=== PATIENT | male | born 1985 | race Caucasian/White ===

== ENCOUNTER 2018-08-28 17:17 | Emergency (ER) | payer BC ==
[2018-08-28 18:03] VITALS: BP 114/75
[2018-08-28] MEDS ORDERED: Amoxicillin/Clavulanate TAB* 875 MG PO ONE (18:52)
[2018-08-28] MEDS ORDERED: Tetan/Diph/Pertus SYR(Tdap)* 0.5 ML SYR(BOOSTRIX) use SYR IM ONE (18:52)
--- NOTE | 2018-08-28 18:54 | UC ---
Skin Complaint HPI - HPI Summary HPI Summary: Stepped on a nail in left anterior foot yesterday. Today, increased warm, redness, swelling and pain with pain going up the leg. Some sweats this afternoon, no chills/ fevers. - History of Current Complaint Chief Complaint: UCWounds Time Seen by Provider: 08/28/18 18:13 Stated Complaint: LEFT FOOT STEPPED ON NAIL Hx Obtained From: Patient Onset/Duration: Sudden Onset, Lasting Days - 2, Worse Since - today Skin Exposure Onset/Duration: Days Ago - 2 Timing: Constant Onset Severity: Mild Current Severity: Severe Pain Intensity: 8 Location: Foot (Left) - puncture wound Character: Swelling, Pain, Redness Aggravating Factor(s): Other - walking Alleviating Factor(s): Nothing Associated Signs & Symptoms: Positive: Diaphoresis, Tenderness. Negative: Fever , Chills, Red Streaks Related History: Trauma - nail puncture wound. - Allergy/Home Medications Allergies/Adverse Reactions: Allergies Allergy/AdvReac Type Severity Reaction Status Date / Time azathioprine [From Imuran] Allergy Vomiting Verified 08/28/18 18:04 erythromycin base Allergy Hives Verified 08/28/18 18:04 infliximab [From Remicade] Allergy Difficulty Verified 08/28/18 18:04 Breathing Home Medications: Home Medications Budesonide [Entocort EC] 9 mg PO DAILY 08/28/18 [History Confirmed 08/28/18] Ciprofloxacin TAB* [Cipro 250 MG Tab*] 250 mg PO BID 08/28/18 [History Confirmed 08/28/18] Dicyclomine CAP* [Bentyl CAP*] 10 mg PO TID PRN 08/28/18 [History Confirmed 08/11] Escitalopram * [Lexapro *] 20 mg PO DAILY 08/28/18 [History Confirmed 08/28/18] metroNIDAZOLE [Flagyl 500 MG TAB] 500 mg PO BID 08/28/18 [History Confirmed 08/11] PMH/Surg Hx/FS Hx/Imm Hx Other GI/ History: Colitis - Surgical History Surgical History: Yes Surgery Procedure, Year, and Place: APPENDECTOMY. J pouch. rectal tumor- non- cancerous. ileostomy and reversal - Family History Known Family History: Negative: Diabetes - Social History Occupation: Employed Full-time Lives: With Family Alcohol Use: None Substance Use Type: None Smoking Status (MU): Never Smoked Tobacco - Immunization History Most Recent Tetanus Shot: not sure, think 2014 Review of Systems All Other Systems Reviewed And Are Negative: Yes Musculoskeletal: Positive: Arthralgia - left foot with swelling, warmth Physical Exam Triage Information Reviewed: Yes Appearance: Well-Nourished, Ill-Appearing, Pain Distress Vital Signs: Initial Vital Signs Temp 97.8 F 08/28/18 17:59 Pulse 71 08/28/18 17:59 Resp 16 08/28/18 17:59 BP 114/75 08/28/18 17:59 Pulse Ox 99 08/28/18 17:59 Vital Signs Reviewed: Yes Eyes: Positive: Conjunctiva Clear Neck exam: Normal Respiratory Exam: Normal Cardiovascular Exam: Normal Musculoskeletal: Positive: ROM Limited @ - left foot, Other: - left foot with puncture wound plantar distal foot. Swelling and erythema dorsal foot over the puncture wound. Neurological Exam: Normal Psychological Exam: Normal Skin: Positive: Other - redness over the left foot Course/Dx - Course Course Of Treatment: On cipro and flagyl for bowel disease. - Differential Diagnoses - Skin Complaint Differential Diagnoses: Abscess, Cellulitis, Lymphangitis - Diagnoses Provider Diagnosis: Puncture wound of left foot excluding toes with infection Discharge - Sign-Out/Discharge Documenting (check all that apply): Patient Departure All imaging exams completed and their final reports reviewed: No Studies - Discharge Plan Condition: Stable Disposition: HOME Prescriptions: Amoxicillin/Clavulanate TAB* [Augmentin TAB 875*] 875 mg PO BID #20 tab Patient Education Materials: Puncture Wound (ED), Cellulitis (ED), Amoxicillin/ Clavulanate Potassium (By mouth) Referrals: Wayne Jay MD [Primary Care Provider] - Additional Instructions: IF THE PAIN IS GETTING WORSE, OR IF YOU HAVE FEVERS/ SHAKING CHILLS GO TO THE ER. - Billing Disposition and Condition Condition: STABLE Disposition: Home
== END 2018-08-28 19:05 | disposition home or self-care (01) ==
LOC: UCCORT 17:17
DX: S91.332A Puncture wound without foreign body, left foot, initial encounter (principal); L08.9 Local infection of the skin and subcutaneous tissue, unspecified; W22.8XXA Striking against or struck by other objects, initial encounter; Y92.9 Unspecified place or not applicable; Z88.1 Allergy status to other antibiotic agents
CPT/HCPCS: 90471; 90715; 99212; A9270-GY; G0463

== ENCOUNTER 2019-05-02 12:57 | Emergency (ER) | payer BC, MEDICAID ==
--- OUTSIDE RECORDS SUMMARY | 2019-05-02 13:08 | XMS REPORT | Summary of Care ---
:1985 Author Organization [facility] Address [address] [place] [address] Care Team Providers Name Role Phone Wayne Jay Primary Care Provider Reason for Visit (Routine) Status Reason Specialty Diagnoses / Procedures Referred By Referred To Contact Contact Closed Infusion Therapy Diagnoses Crohn's disease of both small and large intestine with complications Jeana Chavira MD [facility] Infusion Procedures MD IV INFUSION THERAPY/PROPHYLAXIS /DX 1ST TO 1 HR MD IV INFUSION THERAPY PROPHYLAXIS/DX EA HOUR MD DRUGS UNCLASSIFIED INJECTION [address] [place] [address] [address] Phone: [place] [phone] [id number] Encounter Details Date Type Department Care Team Description 04/21/2019 Hospital Encounter [facility] Infusion Center Outpatient [address] [facility] [place] [id number] Allergies Active Allergy Reactions Severity Noted Date Comments Erythromycin Other 01/08/2009 Azathioprine Sodium GI Reaction High 08/29/2014 Diarrhea,vomiting,shakes Infliximab Swelling 07/13/2014 Developed antibodies against documented as of this encounter (statuses as of 04/23/2019) Medications Medication Sig Dispensed Refills Start Date End Date Status B-12, Methylcobalamin, Place 1,000 mcg 0 Active 1000 MCG Sublingual SL under tongue EVERY Tab OTHER DAY. Probiotic Product Take 1 Cap by 0 Active (PROBIOTIC DAILY PO) mouth DAILY. budesonide (ENTOCORT Take 9 mg by mouth 0 Active EC) 3 MG Oral CAPSULE DAILY. ENTERIC COATED PARTICLESIndications: Ileal pouchitis (HCC) dicyclomine (BENTYL) Take 20 mg by 0 Active 20 MG Oral mouth THREE TIMES TabIndications: Ileal DAILY. pouchitis (HCC) pantoprazole TAKE ONE TABLET BY 30 Tab 6 05/21/2016 Active (PROTONIX) 40 MG Oral MOUTH EVERY DAY Tab EC acetaminophen Take 500 mg by 0 Active (TYLENOL) 500 MG Oral mouth EVERY SIX Tab HOURS NEEDED for Pain. escitalopram (LEXAPRO) TAKE TWO TABLETS 60 Tab 5 02/24/2019 Active 10 MG Oral Tab BY MOUTH EVERY DAY predniSONE (DELTASONE) Take 2 Tabs by 30 Tab 0 03/16/2019 Active 20 MG Oral Tab mouth EVERY TWENTY-FOUR HOURS. rifaximin (XIFAXAN) Take 1 Tab by 60 Tab 0 03/23/2019 Active 550 MG Oral Tab mouth TWICE DAILY. Budesonide (UCERIS) 2 Place 1 Applicator 1 Can 1 03/23/2019 Active MG/ACT Rectal Foam per rectum DAILY. predniSONE (DELTASONE) Take 6 Tabs by 100 Tab 0 04/18/2019 Active 5 MG Oral Tab mouth DAILY. documented as of this encounter (statuses as of 04/23/2019) Active Problems Problem Noted Date Lower GI bleed 03/15/2019 Thrombocytosis 07/29/2017 Ileal pouchitis 01/08/2016 Rectal or anal pain 06/20/2015 Ulcerative colitis, chronic 10/12/2014 Mood disorder documented as of this encounter (statuses as of 04/23/2019) Resolved Problems Problem Noted Date Resolved Date Diarrhea following gastrointestinal surgery 07/09/2015 03/27/2018 Ileostomy status 06/13/2015 08/13/2015 History of ulcerative colitis 06/13/2015 03/27/2018 DVT of upper extremity (deep vein thrombosis), right 02/09/2015 08/13/2015 Abdominal fluid collection 02/08/2015 08/13/2015 DVT of upper extremity (deep vein thrombosis) 01/30/2015 08/13/2015 [facility] (current) use of anticoagulants 01/29/2015 06/28/2015 Overview: 06/28/15 Warfarin d/c'd by [facility] Managed by [facility], referred by Dr Ry La, Dx RUE DVT, target INR range 2.0-3.0, therapy initiated on 01/25/15, duration of therapy 6 months Anticoagulant Warfarin Dehydration 01/08/2015 07/14/2015 Rectal mass 01/08/2015 07/14/2015 Ulcerative colitis, acute, other complication 08/14/2014 08/13/2015 Pancolitis 08/14/2014 08/13/2015 Bloody diarrhea 08/14/2014 10/12/2014 Leukocytosis 08/14/2014 10/12/2014 Other ulcerative colitis 05/24/2014 12/29/2014 documented as of this encounter (statuses as of 04/23/2019) Immunizations Name Administration Dates Next Due Influenza (IM) Preservative Free 03/23/2019, 11/09/2014, 02/27/2012 MMR VACCINE 06/14/2014 documented as of this encounter Social History Tobacco Use Types Packs/Day Years Used Date Never Smoker Smokeless Tobacco: Never Used Alcohol Use Drinks/Week oz/Week Comments Yes OCCASIONALLY Sex Assigned at Date Recorded Not on file documented as of this encounter Last Filed Vital Signs Vital Sign Reading Time Taken Comments Blood Pressure 136/84 04/21/2019 2:43 PM EST Pulse - - Temperature 36.6 04/21/2019 2:43 PM EST C (97.9 F) Respiratory Rate 16 04/21/2019 2:43 PM EST Oxygen Saturation - - Inhaled Oxygen Concentration - - Weight - - Height - - Body Mass Index - - documented in this encounter Plan of Treatment Date Type Specialty Care Team Description 04/26/2019 GI Procedure Gastroenterology Jeana Chavira MD [address] [place] [address] [phone] 05/20/2019 Office Visit Family Practice Wayne Jay MD [address] [place] [address] [phone] Health Maintenance Due Date Last Done Comments DTaP/Tdap/Td Vaccines ( - 02/13/1996 Tdap) DEPRESSION SCREENING 03/03/2020 03/03/2019, 03/03/2019 INFLUENZA VACCINE Completed 03/23/2019, 11/09/2014, 02/27/2012 HEPATITIS A IMMUNIZATION Aged Out No longer eligible based SERIES on patient's age to complete this topic HPV IMMUNIZATION SERIES Aged Out No longer eligible based on patient's age to complete this topic MENINGOCOCCAL VACCINE IMM Aged Out No longer eligible based on patient's age to complete this topic PNEUMOCOCCAL 0-64 YRS Aged Out No longer eligible based on patient's age to complete this topic documented as of this encounter Goals Goal Patient Goal Associated Recent Patient-Stated? Author Type Problems Progress Depression Depression 18 No sabino Jay (PHQ-9) (03/03/2019 MD Wayne total score < 5 9:08 AM EST) Note: This is an individualized treatment (depression) goal for Carlos Arroa: Displayed above is your goal for a depression screening (PHQ-9) score that would indicate good control of your depression. Keep a regular sleep schedule Lifestyle No Wayne Jay MD Note: This is an individualized lifestyle goal for Carlos Arora: Please maintain a regular sleep schedule. This may help with some symptoms of depression. Take all prescribed medications as directed Self-management No Wayne Jay MD Note: This is an individualized self-management goal for Carlos Arora: Please take all prescribed medications as directed. 1. Do not skip doses. If you cannot afford your medications, talk with your doctor. 2. Use a pill reminder system such as a pill box if needed. Your pharmacist can help you with this. 3. Contact your Pharmacy 5 days before your medication runs out. If you cannot take your medications for any reasons, talk with your doctor. 4. Please bring all of your medication bottles and inhalers (or a list of all your medications/inhalers) with you to every visit. Potential barriers to meeting all of your care plan goals will continue to be addressed on an ongoing basis. documented as of this encounter Results Not on filedocumented in this encounter Administered Medications Medication Order MAR Action Action Date Dose Rate Site ustekinumab (STELARA) IV mixture New Bag 04/21/2019 3:34 PM EST 520 mg 520 mg 520 mg, Intravenous, X1, 1 dose, First dose on Hattie 04/21/19 at 1600, Infuse over at least 1 hour using an IV set with an in-line, low-protein binding filter (0.2 micron). Patient supplied medication by specialty, documented in this encounter Insurance Payer Benefit Plan / Subscriber ID Effective Dates Phone Address Type Group [employer] ACCESS [id number] 2018-Present [facility] CARE PPO [place]ICAID [place] [id number] 2019-Present Medicaid [place] MED[place]ID Guarantor Name Account Type Relation to Date of Phone Billing Patient Address Carlos Arora Personal/Family 1985 [address] [phone] [place], [place] ([place]) [id number] documented as of this encounter Advance Directives Code Status Date Activated Date Inactivated Comments Full Code 03/14/2019 10:05 AM Does the patient have decision making capacity? Yes Order was discussed with: Patient I discussed all options and patient/surrogate requested and agreed to: Full Code Full Code 05/24/2014 1:12 PM 05/26/2014 3:24 PM Does patient have decision making capacity? yes Order discussed with: Patient I discussed all options and patient/surrogate requested and agreed to: Other (Full code)
--- OUTSIDE RECORDS SUMMARY | 2019-05-02 13:08 | XMS REPORT | Summary of Care ---
:1985 Author Organization [facility] Address [address] [place] [address] Care Team Providers Name Role Phone Wayne Jay Primary Care Provider Reason for Visit Reason Comments Surgery Consult Ulcerative colitis, anal intraephithelial neoplasia Encounter Details Date Type Department Care Team Description 03/29/2019 Office Visit [facility] Alexandru Perez MD Ileal pouchitis (HCC) [address] (Primary Dx) [place] [phone] [place] [address] Allergies Active Allergy Reactions Severity Noted Date Comments Erythromycin Other 01/08/2009 Azathioprine Sodium GI Reaction High 08/29/2014 Diarrhea,vomiting,shakes Infliximab Swelling 07/13/2014 Developed antibodies against documented as of this encounter (statuses as of 03/29/2019) Medications Medication Sig Dispensed Refills Start Date End Date Status B-12, Place 1,000 mcg 0 Active Methylcobalamin, under tongue 1000 MCG EVERY OTHER Sublingual SL Tab DAY. Probiotic Product Take 1 Cap by 0 Active (PROBIOTIC DAILY mouth DAILY. PO) budesonide Take 9 mg by 0 Active (ENTOCORT EC) 3 MG mouth DAILY. Oral CAPSULE ENTERIC COATED PARTICLESIndicatio ns: Ileal pouchitis (HCC) dicyclomine Take 20 mg by 0 Active (BENTYL) 20 MG mouth THREE Oral TIMES DAILY. TabIndications: Ileal pouchitis (HCC) pantoprazole TAKE ONE TABLET 30 Tab 6 05/21/2016 Active (PROTONIX) 40 MG BY MOUTH EVERY Oral Tab EC DAY acetaminophen Take 500 mg by 0 Active (TYLENOL) 500 MG mouth EVERY SIX Oral Tab HOURS NEEDED for Pain. escitalopram TAKE TWO 60 Tab 5 02/24/2019 Active (LEXAPRO) 10 MG TABLETS BY Oral Tab MOUTH EVERY DAY predniSONE Take 2 Tabs by 30 Tab 0 03/16/2019 Active (DELTASONE) 20 MG mouth EVERY Oral Tab TWENTY-FOUR HOURS. rifaximin Take 1 Tab by 60 Tab 0 03/23/2019 Active (XIFAXAN) 550 MG mouth TWICE Oral Tab DAILY. predniSONE Take 6 Tabs by 100 Tab 0 03/23/2019 Active (DELTASONE) 5 MG mouth DAILY. Oral Tab Budesonide Place 1 1 Can 1 03/23/2019 Active (UCERIS) 2 MG/ACT Applicator per Rectal Foam rectum DAILY. NITROGLYCERIN RE Place 0.125 % 0 03/29/19 Discontinued per rectum 20 (Error) THREE TIMES DAILY. Apply a pea sized amt 3-4 times daily inside rectum using finger cot documented as of this encounter (statuses as of 03/29/2019) Active Problems Problem Noted Date Lower GI bleed 03/15/2019 Thrombocytosis 07/29/2017 Ileal pouchitis 01/08/2016 Rectal or anal pain 06/20/2015 Ulcerative colitis, chronic 10/12/2014 Mood disorder documented as of this encounter (statuses as of 03/29/2019) Resolved Problems Problem Noted Date Resolved Date Diarrhea following gastrointestinal surgery 07/09/2015 03/27/2018 Ileostomy status 06/13/2015 08/13/2015 History of ulcerative colitis 06/13/2015 03/27/2018 DVT of upper extremity (deep vein thrombosis), right 02/09/2015 08/13/2015 Abdominal fluid collection 02/08/2015 08/13/2015 DVT of upper extremity (deep vein thrombosis) 01/30/2015 08/13/2015 halfway (current) use of anticoagulants 01/29/2015 06/28/2015 Overview: 06/28/15 Warfarin d/c'd by [facility] Managed by [facility], referred by Dr Ry La, Dx RUE DVT, target INR range 2.0-3.0, therapy initiated on 01/25/15, duration of therapy 6 months Anticoagulant Warfarin Dehydration 01/08/2015 07/14/2015 Rectal mass 01/08/2015 07/14/2015 Ulcerative colitis, acute, other complication 08/14/2014 08/13/2015 Pancolitis 08/14/2014 08/13/2015 Bloody diarrhea 08/14/2014 10/12/2014 Leukocytosis 08/14/2014 10/12/2014 Other ulcerative colitis 05/24/2014 12/29/2014 documented as of this encounter (statuses as of 03/29/2019) Immunizations Name Administration Dates Next Due Influenza (IM) Preservative Free 03/23/2019, 11/09/2014, 02/27/2012 MMR VACCINE 06/14/2014 documented as of this encounter Social History Tobacco Use Types Packs/Day Years Used Date Never Smoker Smokeless Tobacco: Never Used Alcohol Use Drinks/Week oz/Week Comments Yes OCCASIONALLY Sex Assigned at Date Recorded Not on file Job Start Date Occupation Industry Not on file Not on file Not on file Travel History Travel Start Travel End No recent travel history available. documented as of this encounter Last Filed Vital Signs Vital Sign Reading Time Taken Comments Blood Pressure - - Pulse - - Temperature - - Respiratory Rate - - Oxygen Saturation - - Inhaled Oxygen Concentration - - Weight 113.4 kg (250 lb) 03/29/2019 3:10 PM EST Height 190.5 cm (6' 3") 03/29/2019 3:10 PM EST Body Mass Index 31.25 03/29/2019 3:10 PM EST documented in this encounter Progress Notes Alexandru Perez MD - 03/29/2019 3:10 PM EST PATIENT: Carlos Arora : 1985 DATE OF SERVICE: 03/29/2019 CHIEF COMPLAINT: Chief Complaint Patient presents with Surgery Consult Ulcerative colitis, anal intraephithelial neoplasia Subjective HISTORY OF PRESENT ILLNESS: Carlos Arroa is a 34-y.o. male. HPI Patient is a 34-year-old gentleman with prior diagnosis of ulcerative colitis status post total abdominal colectomy, proctectomy with ileal pouch anal anastomosis. This patient recently developed significant anal bleeding/ hematochezia requiring blood transfusion. Patient had been frequently suffering from awful pouchitis although he has been out of his pouch surgery for 5 years. Patient's pouch endoscopy revealed significant ulcerations and bleeding. 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 B-12, Methylcobalamin, 1000 MCG Sublingual SL Tab Place 1,000 mcg under tongue EVERY OTHER DAY. budesonide (ENTOCORT EC) 3 MG Oral CAPSULE ENTERIC COATED PARTICLES Take 9 mg by mouth DAILY. Budesonide (UCERIS) 2 MG/ACT Rectal Foam Place 1 Applicator per rectum DAILY. dicyclomine (BENTYL) 20 MG Oral Tab Take 20 mg by mouth THREE TIMES DAILY. escitalopram (LEXAPRO) 10 MG Oral Tab TAKE TWO TABLETS BY MOUTH EVERY DAY pantoprazole (PROTONIX) 40 MG Oral Tab EC TAKE ONE TABLET BY MOUTH EVERY DAY predniSONE (DELTASONE) 20 MG Oral Tab Take 2 Tabs by mouth EVERY TWENTY- FOUR HOURS. predniSONE (DELTASONE) 5 MG Oral Tab Take 6 Tabs by mouth DAILY. Probiotic Product (PROBIOTIC DAILY PO) Take 1 Cap by mouth DAILY. rifaximin (XIFAXAN) 550 MG Oral Tab Take 1 Tab by mouth TWICE DAILY. No current facility-administered medications for this visit. Allergies Allergen Reactions Imuran [Azathioprine Sodium] GI Reaction Diarrhea,vomiting,shakes Erythromycin Other Remicade [Infliximab] Swelling Developed antibodies against Social History Socioeconomic History Marital status: Spouse name: Not on file Number of children: Not on file Years of education: Not on file Highest education level: Not on file Occupational History Not on file Social Needs Financial resource strain: Not on file Food insecurity Worry: Not on file Inability: Not on file Transportation needs Medical: Not on file Non-medical: Not on file Tobacco Use Smoking status: Never Smoker Smokeless tobacco: Never Used Substance and Sexual Activity Alcohol use: Yes Comment: OCCASIONALLY Drug use: No Sexual activity: Yes Partners: Female Lifestyle Physical activity Days per week: Not on file Minutes per session: Not on file Stress: Not on file Relationships Social connections Talks on phone: Not on file Gets together: Not on file Attends taoism service: Not on file Active member of club or organization: Not on file Attends meetings of clubs or organizations: Not on file Relationship status: Not on file Intimate partner violence Fear of current or ex partner: Not on file Emotionally abused: Not on file Physically abused: Not on file Forced sexual activity: Not on file Other Topics Concern Back Care Not Asked Bike Helmet Not Asked Blood Transfusions Not Asked Caffeine Concern Not Asked Exercise Not Asked Hobby Hazards Not Asked International Travel Not Asked Service Not Asked Occupational Exposure Not Asked Seat Belt Not Asked Self-Exams Not Asked Sleep Concern Not Asked Special Diet Not Asked Stress Concern Not Asked Weight Concern Not Asked Social History Narrative Not on file REVIEW OF SYSTEMS: Review of Systems Constitutional: Negative. Gastrointestinal: Positive for blood in stool. Objective PHYSICAL EXAM: VITALS: Ht 6' 3" (1.905 m) | Wt 250 lb (113.4 kg) | BMI 31.25 kg/m Body mass index is 31.25 kg/m. Physical Exam Vitals signs and nursing note reviewed. Constitutional: Appearance: Normal appearance. Comments: The rest of the examination was not performed Neurological: Mental Status: He is alert. ASSESSMENT / IMPRESSION: ICD-9-CM ICD-10-CM 1. Ileal pouchitis (HCC) 569.71 K91.850 Plan I agree with maintenance medication for presumed Crohn's disease and slow progressive failure of thepouch. Patient is feeling good because of the prednisone he is on. I will biopsy or remove AIN 1 in the next several months after his disease is under control better. Patient understands that. Patient' s mother was present at the time of this office visit. Author: Alexandru Perez MD 03/29/2019 16:57 ENCaAlexandru clark MD - 03/29/2019 3:10 PM EST PATIENT: Carlos Arora : 1985 DATE OF SERVICE: 03/29/2019 CHIEF COMPLAINT: Chief Complaint Patient presents with Surgery Consult Ulcerative colitis, anal intraephithelial neoplasia Subjective HISTORY OF PRESENT ILLNESS: Carlos Arora is a 34-y.o. male. HPI Patient is a 34-year-old gentleman with prior diagnosis of ulcerative colitis status post total abdominal colectomy, proctectomy with ileal pouch anal anastomosis. This patient recently developed significant anal bleeding/ hematochezia requiring blood transfusion. Patient had been frequently suffering from awful pouchitis although he has been out of his pouch surgery for 5 years. Patient's pouch endoscopy revealed significant ulcerations and bleeding. 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 B-12, Methylcobalamin, 1000 MCG Sublingual SL Tab Place 1,000 mcg under tongue EVERY OTHER DAY. budesonide (ENTOCORT EC) 3 MG Oral CAPSULE ENTERIC COATED PARTICLES Take 9 mg by mouth DAILY. Budesonide (UCERIS) 2 MG/ACT Rectal Foam Place 1 Applicator per rectum DAILY. dicyclomine (BENTYL) 20 MG Oral Tab Take 20 mg by mouth THREE TIMES DAILY. escitalopram (LEXAPRO) 10 MG Oral Tab TAKE TWO TABLETS BY MOUTH EVERY DAY pantoprazole (PROTONIX) 40 MG Oral Tab EC TAKE ONE TABLET BY MOUTH EVERY DAY predniSONE (DELTASONE) 20 MG Oral Tab Take 2 Tabs by mouth EVERY TWENTY- FOUR HOURS. predniSONE (DELTASONE) 5 MG Oral Tab Take 6 Tabs by mouth DAILY. Probiotic Product (PROBIOTIC DAILY PO) Take 1 Cap by mouth DAILY. rifaximin (XIFAXAN) 550 MG Oral Tab Take 1 Tab by mouth TWICE DAILY. No current facility-administered medications for this visit. Allergies Allergen Reactions Imuran [Azathioprine Sodium] GI Reaction Diarrhea,vomiting,shakes Erythromycin Other Remicade [Infliximab] Swelling Developed antibodies against Social History Socioeconomic History Marital status: Spouse name: Not on file Number of children: Not on file Years of education: Not on file Highest education level: Not on file Occupational History Not on file Social Needs Financial resource strain: Not on file Food insecurity Worry: Not on file Inability: Not on file Transportation needs Medical: Not on file Non-medical: Not on file Tobacco Use Smoking status: Never Smoker Smokeless tobacco: Never Used Substance and Sexual Activity Alcohol use: Yes Comment: OCCASIONALLY Drug use: No Sexual activity: Yes Partners: Female Lifestyle Physical activity Days per week: Not on file Minutes per session: Not on file Stress: Not on file Relationships Social connections Talks on phone: Not on file Gets together: Not on file Attends taoism service: Not on file Active member of club or organization: Not on file Attends meetings of clubs or organizations: Not on file Relationship status: Not on file Intimate partner violence Fear of current or ex partner: Not on file Emotionally abused: Not on file Physically abused: Not on file Forced sexual activity: Not on file Other Topics Concern Back Care Not Asked Bike Helmet Not Asked Blood Transfusions Not Asked Caffeine Concern Not Asked Exercise Not Asked Hobby Hazards Not Asked International Travel Not Asked Service Not Asked Occupational Exposure Not Asked Seat Belt Not Asked Self-Exams Not Asked Sleep Concern Not Asked Special Diet Not Asked Stress Concern Not Asked Weight Concern Not Asked Social History Narrative Not on file REVIEW OF SYSTEMS: Review of Systems Constitutional: Negative. Gastrointestinal: Positive for blood in stool. Objective PHYSICAL EXAM: VITALS: Ht 6' 3" (1.905 m) | Wt 250 lb (113.4 kg) | BMI 31.25 kg/m Body mass index is 31.25 kg/m. Physical Exam Vitals signs and nursing note reviewed. Constitutional: Appearance: Normal appearance. Comments: The rest of the examination is not performed Neurological: Mental Status: He is alert. Psychiatric: Mood and Affect: Mood normal. Behavior: Behavior normal. Thought Content: Thought content normal. Judgment: Judgment normal. ASSESSMENT / IMPRESSION: ICD-9-CM ICD-10-CM 1. Ileal pouchitis (HCC) 569.71 K91.850 Plan I agree with maintenance medication for presumed Crohn's disease and slow progressive failure of ileal pouch anal anastomosis. Patient is currently feeling good due to his prednisone taper. I will remove his AIN1 several months after his disease is under control. Patient understands that. Patient' s mother was present at the time of this office visit. Author: Alexandru Perez MD 03/29/2019 17:06 documented in this encounter Plan of Treatment Date Type Specialty Care Team Description 03/31/2019 Office Visit Gastroenterology Jeana Chavira MD [address] [place] [address] [phone] 04/07/2019 Office Visit Family Practice Wayne Jay MD [address] [place] [address] [phone] 04/26/2019 GI Procedure Gastroenterology Jeana Chavira MD [address] [place], [place] [id number] Health Maintenance Due Date Last Done Comments [...] an individualized treatment (depression) goal for Carlos Arora: Displayed above is your goal for a [...] Results Not on filedocumented in this encounter Visit Diagnoses Diagnosis Ileal pouchitis (HCC) Pouchitis documented in this encounter Insurance Payer Benefit Plan / Subscriber ID Effective Dates Phone Address Type Group [employer] ACCESS xxxxxxxxxxxx 2018-Present [facility] CARE PPO MEDICAID [place] xxxxxxxx 2019-Present Medicaid [place] MEDICAID Guarantor Name Account Type Relation to Date of Phone Billing Patient Address Carlos Arora Personal/Family 1985 [address] [phone] [place], [place] (Work) [address] documented as of this encounter Advance Directives [...]
--- OUTSIDE RECORDS SUMMARY | 2019-05-02 13:08 | XMS REPORT | Summary of Care ---
:1985 Author Organization [facility] Address [address] [address] Care Team Providers Name Role Phone PierreWayne Primary Care Provider Reason for Visit Reason Comments Follow Up 1 week f/u IIleal pouchitis Encounter Details Date Type Department Care Team Description 03/31/2019 Office Visit Jeana Nye MD Crohn's disease of Gastroenterology/Hepa [address] [place] [address] intestine with rectal [address] [phone] bleeding (HCC) [place] [address] (Primary Dx) [phone] Allergies Active Allergy Reactions Severity Noted Date Comments Erythromycin Other 01/08/2009 Azathioprine Sodium GI Reaction High 08/29/2014 Diarrhea,vomiting,shakes Infliximab Swelling 07/13/2014 Developed antibodies against documented as of this encounter (statuses as of 03/31/2019) Medications Medication Sig Dispensed Refills Start Date [...] 550 MG Oral Tab mouth TWICE DAILY. predniSONE (DELTASONE) Take 6 Tabs by 100 Tab 0 03/23/2019 Active 5 MG Oral Tab mouth DAILY. Budesonide (UCERIS) 2 Place 1 Applicator 1 Can 1 03/23/2019 Active MG/ACT Rectal Foam per rectum DAILY. documented as of this encounter (statuses as of 03/31/2019) Active Problems Problem Noted Date Lower GI bleed 03/15/2019 Thrombocytosis 07/29/2017 Ileal pouchitis 01/08/2016 Rectal or anal pain 06/20/2015 Ulcerative colitis, chronic 10/12/2014 Mood disorder documented as of this encounter (statuses as of 03/31/2019) Resolved Problems Problem Noted Date Resolved Date Diarrhea following gastrointestinal surgery 07/09/2015 03/27/2018 Ileostomy status 06/13/2015 08/13/2015 History of ulcerative colitis 06/13/2015 03/27/2018 DVT of upper extremity (deep vein thrombosis), right 02/09/2015 08/13/2015 Abdominal fluid collection 02/08/2015 08/13/2015 DVT of upper extremity (deep vein thrombosis) 01/30/2015 08/13/2015 MCC (current) use of anticoagulants 01/29/2015 06/28/2015 Overview: 06/28/15 Warfarin d/c'd by [facility] Managed by [facility], referred by Dr Ry La, Dx RUE DVT, target INR range 2.0-3.0, therapy initiated on 01/25/15, duration of therapy 6 months Anticoagulant Warfarin Dehydration 01/08/2015 07/14/2015 Rectal mass 01/08/2015 07/14/2015 Ulcerative colitis, acute, other complication 08/14/2014 08/13/2015 Pancolitis 08/14/2014 08/13/2015 Bloody diarrhea 08/14/2014 10/12/2014 Leukocytosis 08/14/2014 10/12/2014 Other ulcerative colitis 05/24/2014 12/29/2014 documented as of this encounter (statuses as of 03/31/2019) Immunizations Name Administration Dates Next Due Influenza [...] Sign Reading Time Taken Comments Blood Pressure 112/64 03/31/2019 3:49 PM EST Pulse 78 03/31/2019 3:49 PM EST Temperature - - Respiratory Rate - - Oxygen Saturation 98% 03/31/2019 3:49 PM EST Inhaled Oxygen Concentration - - Weight 114.8 kg (253 lb) 03/31/2019 3:49 PM EST Height 190.5 cm (6' 3") 03/31/2019 3:49 PM EST Body Mass Index 31.62 03/31/2019 3:49 PM EST documented in this encounter Patient Instructions Patient InstructionsKiJeana lin MD - 03/31/2019 4:00 PM EST1. [facility] infusion center will call you to set up the first infusion of the Stelara. I don't want you to start tapering further on the prednisone until after you've gotten the Stelara and notice any improvement. 2. Go ahead and start the budesonide/uceris foam 3. See us back after your first infusion. Jeana Chavira MD documented in this encounter Progress Notes Jeana Chavira MD - 03/31/2019 4:00 PM EST PATIENT: Carlos Arora : 1985 DATE OF SERVICE: 03/31/2019 REFERRING PRACTITIONER: Wayne Jay PRIMARY CARE PROVIDER: Wayne Jay CHIEF COMPLAINT: Chief Complaint Patient presents with Follow Up 1 week f/u IIleal pouchitis Subjective HISTORY OF PRESENT ILLNESS: Carlos Arora is a 34-y.o. male who presents for follow-up of pouchitis. Patient with significant bleeding, inflammation seen in small intestine, as well as pouch, most consistent with actual diagnosis if Crohn's disease. He is now on prednisone 25 mg, and starting to have more frquent loose stools,minimal rectal bleeding. He saw Dr. Perez 2 days ago, who recommend repeat pouch endoscopy once inflammation is improved. No need for pouch reversal to ileostomy at this time. +chills. No nausea/vomiting. Current Outpatient Medications Medication Sig acetaminophen (TYLENOL) [...] Other Remicade [Infliximab] Swelling Developed antibodies against REVIEW OF SYSTEMS: All remaining review of systems was negative except for as noted in the history of present illness/subjective. Objective PHYSICAL EXAMINATION: VITALS: BP 112/64 (BP Location: Left arm, Patient Position: Sitting) | Pulse 78 | Ht 6' 3" (1.905m) | Wt 253 lb (114.8 kg) | SpO2 98% | BMI 31.62 kg/m Body mass index is 31.62 kg/m. GENERAL: alert, oriented, no acute distress. HEENT: No scleral icterus, MMM Psych: Affect normal Neck: no lymphadenopathy LUNGS: clear to auscultation bilaterally. HEART: regular rhythm, no murmurs, no gallops, no rubs. ABDOMEN: general exam: soft, non-tender, non-distended, without masses or organomegaly, normal active bowel sounds, Perez's sign negative. Extrmities: no edema Skin: clear Neuro: gait normal, a&o x 3 RECTAL: exam deferred. IMPRESSION: Crohn's, involvement of small and large intestine, with pouchitis Plan PLAN: 1. Continue prednisone at 25 mg for now 2. Stelara has been approved, request for [facility] infusion to [facility] 3. If stelara infusion improves symptoms, will continue slow taper of prednisone 4. Consider referral to larger inflammatory bowel disease center if stelara is ineffective Follow up: After first infusion of stelara. Author: Jeana Chavira MD 03/31/2019 16:59 documented in this encounter Plan of Treatment Date Type Specialty Care Team Description 04/07/2019 Office Visit Family Practice Wayne Jay MD [address] [place] [address] [phone] 04/26/2019 GI Procedure Gastroenterology Jeana Chavira MD [address] [place] [address] [phone] Health Maintenance Due Date Last Done Comments DTaP/Tdap/Td Vaccines (1 - 02/13/1996 Tdap) DEPRESSION SCREENING 03/03/2020 03/03/2019, [...] filedocumented in this encounter Visit Diagnoses Diagnosis Crohn's disease of both small and large intestine with rectal bleeding (HCC) Regional enteritis of small intestine with large intestine documented in this encounter Insurance Payer Benefit Plan / Subscriber ID Effective Dates Phone Address Type Group [employer] ACCESS xxxxxxxxxxxx 2018-Present [facility] CARE O MEDICAID [facility] xxxxxxxx 2019-Present Medicaid [place] MEDICAID Guarantor Name Account Type Relation to Date of Phone Billing Patient Address Carlos Arora Personal/Family 1985 [address] [phone] [place], [place] (Work) [id number] documented as of this encounter Advance Directives [...]
--- OUTSIDE RECORDS SUMMARY | 2019-05-02 13:08 | XMS REPORT | Summary of Care ---
:1985 Author Organization [facility] Address [address] [address] Care Team Providers Name Role Phone Wayne Vazquez Primary Care Provider Reason for Referral (Emergency) Status Reason Specialty Diagnoses / Procedures Referred By Contact Referred To Contact Yesy Harp PA [address] [phone] Scheduling Instructions Reason for Consult: Active GI bleed Patient Background: Carlos Arora is a 34-y.o. male (Routine) Status Reason Specialty Diagnoses / Procedures Referred By Contact Referred To Contact Yesy Harp PA [address] [phone] Scheduling Instructions Reason for Consult: Active GI bleed Patient Background: Carlos Arora is a 34-y.o. male Reason for Visit Reason Comments GI Bleeding Auth/Cert Status Reason Specialty Diagnoses / Procedures Referred By Contact Referred To Contact Encounter Details Date Type Department Care Team Description 03/14/2019 - Hospital Encounter [facility] [address] Ayden Torres MD [address] [address] Inpatient 03/16/2019 1 Mojgan Artis MD [address] [address] [address] [place] [address] Allergies Active Allergy Reactions Severity Noted Date Comments Erythromycin Other 01/08/2009 Azathioprine Sodium GI Reaction High 08/29/2014 Diarrhea,vomiting,shakes Infliximab Swelling 07/13/2014 Developed antibodies against documented as of this encounter (statuses as of 03/17/2019) Medications Medication Sig Dispensed Refills Start End Date Status Date B-12, Methylcobalamin, Place 1,000 0 Active 1000 MCG Sublingual SL mcg under Tab tongue EVERY OTHER DAY. Probiotic Product Take 1 Cap 0 Active (PROBIOTIC DAILY PO) by mouth DAILY. budesonide (ENTOCORT Take 9 mg 0 Active EC) 3 MG Oral CAPSULE by mouth ENTERIC COATED DAILY. PARTICLESIndications: Ileal pouchitis (HCC) dicyclomine (BENTYL) 20 Take 20 mg 0 Active MG Oral TabIndications: by mouth Ileal pouchitis (HCC) THREE TIMES DAILY. pantoprazole (PROTONIX) TAKE ONE 30 Tab 6 Active 40 MG Oral Tab EC TABLET BY 7 MOUTH EVERY DAY acetaminophen (TYLENOL) Take 500 mg 0 Active 500 MG Oral Tab by mouth EVERY SIX HOURS NEEDED for Pain. Glucosamine-Chondroitin Take by 0 Active (OSTEO BI-FLEX REGULAR mouth. STRENGTH PO) escitalopram (LEXAPRO) TAKE TWO 60 Tab 5 Active 10 MG Oral Tab TABLETS BY 0 MOUTH EVERY DAY NITROGLYCERIN RE Place 0.125 0 Active % per rectum THREE TIMES DAILY. Apply a pea sized amt 3-4 times daily inside rectum using finger cot predniSONE (DELTASONE) Take 2 Tabs 30 Tab 0 Active 20 MG Oral Tab by mouth 0 EVERY TWENTY-FOUR HOURS. metroNIDAZOLE (FLAGYL) Take 500 mg 0 03/16/19 Discontinued (No 500 MG Oral by mouth 20 longer TabIndications: Ileal THREE TIMES clinically pouchitis (HCC) DAILY. indicated) ciprofloxacin (CIPRO) Take 500 mg 0 03/16/19 Discontinued (No 500 MG Oral Tab by mouth 20 longer TWICE clinically DAILY. indicated) methylPREDNISolone 32 Take 1 Tab 0 03/16/19 Discontinued MG Oral Tab by mouth 20 (Duplicate DAILY. Order) documented as of this encounter (statuses as of 03/17/2019) Active Problems Problem Noted Date Lower GI bleed 03/15/2019 Thrombocytosis 07/29/2017 Ileal pouchitis 01/08/2016 Rectal or anal pain 06/20/2015 Ulcerative colitis, chronic 10/12/2014 Mood disorder documented as of this encounter (statuses as of 03/17/2019) Resolved Problems Problem Noted Date Resolved Date Diarrhea following gastrointestinal surgery 07/09/2015 03/27/2018 Ileostomy status 06/13/2015 08/13/2015 History of ulcerative colitis 06/13/2015 03/27/2018 DVT of upper extremity (deep vein thrombosis), right 02/09/2015 08/13/2015 Abdominal fluid collection 02/08/2015 08/13/2015 DVT of upper extremity (deep vein thrombosis) 01/30/2015 08/13/2015 [facility] (current) use of anticoagulants 01/29/2015 06/28/2015 Overview: 06/28/15 Warfarin d/c'd by [facility] by [facility], referred by Dr Ry aL, Dx RUE DVT, target INR range 2.0-3.0, therapy initiated on 01/25/15, duration of therapy 6 months Anticoagulant Warfarin Dehydration 01/08/2015 07/14/2015 Rectal mass 01/08/2015 07/14/2015 Ulcerative colitis, acute, other complication 08/14/2014 08/13/2015 Pancolitis 08/14/2014 08/13/2015 Bloody diarrhea 08/14/2014 10/12/2014 Leukocytosis 08/14/2014 10/12/2014 Other ulcerative colitis 05/24/2014 12/29/2014 documented as of this encounter (statuses as of 03/17/2019) Immunizations Name Administration Dates Next Due Influenza (IM) Preservative Free 11/09/2014, 02/27/2012 MMR VACCINE 06/14/2014 documented as [...] Sign Reading Time Taken Comments Blood Pressure 125/60 03/16/2019 6:45 AM EST Pulse 65 03/16/2019 6:45 AM EST Temperature 36.5 03/16/2019 6:45 AM C (97.7 EST F) Respiratory Rate 18 03/16/2019 6:45 AM EST Oxygen Saturation 99% 03/16/2019 6:45 AM EST Inhaled Oxygen Concentration - - Weight 110.8 kg (244 lb 3.2 oz) 03/16/2019 5:45 AM EST Height 190.5 cm (6' 3") 03/14/2019 6:43 AM EST Body Mass Index 30.52 03/14/2019 6:43 AM EST documented in this encounter Discharge Summaries Mojgan Reynolds MD - 03/16/2019 10:46 AM EST [facility] [address] [id number] Discharge Summary Patient ID: Carlos Arora [id number] 34-y.o. 1985 Admission date: 03/14/2019 Discharge date: 03/16/2019 Admitting Physician: Ayden Torres MD Indication for Admission: Chief Complaint Patient presents with GI Bleeding Principal Diagnosis: GI bleeding Other medical problems managed in the hospital: Acute blood loss anemia secondary to GI loses Discharged Condition: fair Hospital Course: 34 y.o. male with history of Ulcerative colitis, however, now suspecting of Crohn's disase, who cameto ER due to lower GI bleeding. He had diarrhea, and finally noticed blood in stools. He had too many episodes of large volume bloody stools that he became dizzy and passed out. He was hypotensive and admitted in ICU. He received 2 units of RPBC and IVF. He had EGD and sigmoidoscopy, poor preparation but no active bleeding seen. GI recommended to do sigmoidoscopy as outpatient. We monitor his hemodynamics and HH outside the ICU and he was able to tolerate well PO intake, in conditions for discharge at this point. Consults: CONSULT TO MEDICAL CRITICAL CARE CONSULT TO GASTROENTEROLOGY Procedures: EGD and felx sigmoidoscopu CT HEAD WITHOUT IV CONTRAST Final Result No evidence of acute intracranial abnormality is seen. Urgency: Routine. This is a routine medical imaging report. Recommendation: No specific imaging recommendation. Signed by Ta Elam MD, A, FCPS on 03/14/2019 7:[address] ABDOMEN PELVIS ANGIOGRAPHY AORTA Final Result The abdominal aorta, visceral arteries and iliac arteries enhance normally with no indication of inflammatory changes, aneurysm or thrombosis. No indication of an active bleeding site. Postoperative changes associated with known colectomy and ileal pouch are described without significant change from prior study, and without indication of acute inflammatory bowel disease, abnormal distention or obstruction. Urgency: Routine. This is a routine medical imaging report. Recommendation: No specific imaging recommendation. Signed by Jayson Dumas MD on 03/14/2019 10:11 AM Complications: None Medications: Current Discharge Medication List START taking these medications predniSONE 20 MG Tabs Commonly known as: DELTASONE Dose: 40 mg Quantity: 30 Tab Refills: 0 Take 2 Tabs by mouth EVERY TWENTY-FOUR HOURS. CONTINUE these medications which have NOT CHANGED acetaminophen 500 MG Tabs Commonly known as: TYLENOL Dose: 500 mg Refills: 0 Take 500 mg by mouth EVERY SIX HOURS NEEDED for Pain. B-12 (Methylcobalamin) 1000 MCG Subl Dose: 1,000 mcg Refills: 0 Place 1,000 mcg under tongue EVERY OTHER DAY. BENTYL 20 MG Tabs Generic drug: dicyclomine Dose: 20 mg Refills: 0 Take 20 mg by mouth THREE TIMES DAILY. budesonide 3 MG Cpep Commonly known as: ENTOCORT EC Dose: 9 mg Refills: 0 Take 9 mg by mouth DAILY. escitalopram 10 MG Tabs Commonly known as: LEXAPRO Quantity: 60 Tab Refills: 5 TAKE TWO TABLETS BY MOUTH EVERY DAY NITROGLYCERIN RE Dose: 0.125 % Refills: 0 Place 0.125 % per rectum THREE TIMES DAILY. Apply a pea sized amt 3-4 times daily inside rectum using finger cot OSTEO BI-FLEX REGULAR STRENGTH PO Refills: 0 Take by mouth. pantoprazole 40 MG Tbec Commonly known as: PROTONIX Quantity: 30 Tab Refills: 6 TAKE ONE TABLET BY MOUTH EVERY DAY PROBIOTIC DAILY PO Dose: 1 Cap Refills: 0 Take 1 Cap by mouth DAILY. Stop taking these previous medications CIPRO 500 MG Tabs Generic drug: ciprofloxacin FLAGYL 500 MG Tabs Generic drug: metroNIDAZOLE methylPREDNISolone 32 MG Tabs Where to Get Your Medications These medications were sent to [facility] [address] [place] [id number] predniSONE 20 MG Tabs Oxygen or Positive Pressure Devices: Patient Instructions: Activity: activity as tolerated Wound Care: Keep wound clean and dry Follow-Up: Follow up with PCP and GI in 1-2 weeks. Reason: Post Hospital Visit Diet: Regular Diet No orders of the defined types were placed in this encounter. Total duration of time spent: 35 minutes. Provider Signature: Mojgan Garcia MD documented in this encounter Discharge Instructions Mary Ann Hannon RN - 03/16/2019Provider's Instructions Reason for Admission or Diagnosis: GI bleeding Goals:Patient to maintain functional ability. Activity/Restrictions: activity as tolerated Skin/Wound Care: None needed Discharge Diet: Regular Diet Special Instructions: keep appointments Discharge Provider: Mojgan Garcia MD Attending: Mojgan Reynolds MD Time: 08:45 Nurse's Instructions Problems to report to your Physician: Excessive pain or discomfort Fever > 100.5 degrees Difficulty breathing Increase or smell in wound drainage documented in this encounter Progress Notes Mundo Jeong NP - 03/15/2019 10:02 AM EST [facility] [address] [place]. [id number] GI Progress Note Date of Service: 03/15/2019 Patient: Carlos Sandy #: [id number] Attending: AYDEN TORRES MD ,MD Subjective: Sitting up in bed. Says he is feeling a little better today. Still with low abdomen discomfort. Denies nausea, vomiting. Tolerating some clear liquid diet. Had small soft semi-formed BM today, no blood noted. Discussed results of GI scopes. No NSAIDs. PPI for 8 weeks and repeat EGD/flex sig in about 6 weeks to ck healing of ulcers. Temp 99.3 Objective: Blood pressure 118/69, pulse 59, temperature 99.3 F (37.4 C) , temperature source Temporal, resp. rate 15, height 6' 3" (1.905 m), weight 240 lb (108.9 kg), SpO2 97 %. I/O: Intake/Output Summary (Last 24 hours) at 03/15/2019 1002 Last data filed at 03/15/2019 0800 Gross per 24 hour Intake 1440 ml Output 1750 ml Net -310 ml General: alert, no distress, cooperative Lungs: decreased breath sounds Both Heart: RRR Abd: soft, low abd tender, nondistended and + bowel sounds Ext: no edema Data: WBC Count Date Value Ref Range Status 03/15/2019 15.26 (H) 4.23 - 9.07 K/uL Final Hemoglobin Date Value Ref Range Status 03/15/2019 10.2 (L) 13.7 - 17.5 g/dL Final Hematocrit Date Value Ref Range Status 03/15/2019 31.4 (L) 40.1 - 51.0 % Final Platelet Count Date Value Ref Range Status 03/15/2019 317 163 - 337 K/uL Final Sodium Date Value Ref Range Status 03/15/2019 134 134 - 145 mmol/L Final Potassium Date Value Ref Range Status 03/15/2019 4.2 3.5 - 5.1 mmol/L Final Chloride Date Value Ref Range Status 03/15/2019 104 98 - 107 mmol/L Final CO2 Date Value Ref Range Status 03/15/2019 26 22 - 30 mmol/L Final Glucose Date Value Ref Range Status 03/15/2019 116 (H) 70 - 99 mg/dl Final Calcium Date Value Ref Range Status 03/15/2019 8.5 8.3 - 10.1 mg/dl Final BUN Date Value Ref Range Status 03/15/2019 17 9 - 20 mg/dl Final Creatinine Date Value Ref Range Status 03/15/2019 0.7 (L) 0.8 - 1.5 mg/dl Final Assessment/Plan: GIB: 34 yo male transferred from [facility] admitted 03/14 with complaints of rectal bleeding that began ~0345 in morning and patient reports that he passed out and has been feeling weak since. 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 He also was + cdiff in 10/2018 and was treated appropriately. He c/w low abdomen pain this morning, denies nausea, vomiting. Says he feels alittle better today. Discussed results of EGD and Flex sig yesterday and discussed specifically no NSAIDs. He understands and says he will comply. On Prednisone 40mg q24hrs and Protonix 40 bid. WBC 15.2 increased slightly from 14.9 yesterday Hgb 10.2 decreased slightly from 10.4 yesterday. Was 7.6 on transfer and was transfused. BUN 17 decreased from 28 Cr.7 B/C ratio 24 decreased from 35 EGD 03/14/19: Findings: The second portion of the duodenum and third portion of the duodenum were normal. Patchy mildly erythematous mucosa without active bleeding and with no stigmata of bleeding was found in the duodenal bulb. Four non-bleeding cratered and superficial gastric ulcers with no stigmata of bleeding were found in the gastric antrum. The largest lesion was 10 mm in largest dimension. The exam of the stomach was otherwise normal. The examined esophagus was normal. Impression: - Normal second portion of the duodenum and third portion of the duodenum. - Erythematous duodenopathy. - Non-bleeding gastric ulcers with no stigmata of bleeding. - Normal esophagus. - No specimens collected. Recommendation: - Return patient to hospital cody for ongoing care. - Advance diet as tolerated. - Continue present medications. - Use a proton pump inhibitor PO BID for 8 weeks. - Repeat upper endoscopy in 6 weeks to check healing. - Perform pouchoscopy today as planned. Flex Sig 03/14/19: Impression: - Preparation of the colon was poor. - Patent surgical anastomosis - known IPAA. - Multiple ulcers in the ileal j- pouch without surrounding erythema. The proximal ileum appeared endoscopically normal. - Nospecimens collected. Recommendation: - Return patient to hospital cody for ongoing care. - Advance diet as tolerated. - Continue present medications. - No aspirin, ibuprofen, naproxen, or other non-steroidal anti-inflammatory drugs. - Given no surrounding erythema , with the appearance of the ulcers, this may represent NSAID/steroid induced ulcers in the pouch. However, given reported history can not entirely exclude Crohns although no obvious areas of inflammation outside of the ulcerated areas. - Repeat flexible sigmoidoscopy PRN. Patient was discussed with Dr. James. - C/w supportive care - Pt needs to return in about 6 weeks for repeat EGD/flex sig to ck healing of ulcers - May advance diet as tolerated - GI will sign off for now. Call again if needed. Thanks. Author: Mundo Jeong NP Associated attestation - Oren James DO - 03/15/2019 1:03 PM TRACEY saw and evaluated the patient. Discussed with WEAVER AXMINSTER and agree with the WEAVER AXMINSTER's findings and plan as documented in the WEAVER AXMINSTER's note. No further bleeding reported. Hemoglobin levels appear relatively stable. Patient does endorse both steroids as well as taking olba-alx-epwnwiz ibuprofen in high doses (800 mg) which may be contributing to the findings on upper endoscopy as well as the findings in his pouch. I have counseled him toavoid NSAIDs at this time. I recommend repeat EGD as well as flex sig in 6 weeks to assess healing of ulcers as well as assess pouch. Oren aJmes DO GastroenterologistNella Holm MD - 03/15/2019 9:21 AM EST [facility] [address] [place]. [id number] Critical Care Medical Progress Note Date of Service: 03/15/2019 Admission Date: 03/14/19 Patient: Carlos Sandy #: [id number] Attending: AYDEN TORRES MD ,MD Reason for ICU admission: Acute blood loss anemia Subjective: patient subjectively better, has a bowel movement yesterday which was brown and not bloody, hemoglobin is stable. Has mild abdominal pain, tolerating liquid diet well. Interval Present History: PMH of Ulcerative colitis dx 2008 s/p proctocolectomy ileoanal pouch with ileostomy 12/2014 with small bowel ileostomy closure 2015. c with ileal pouchitis presented with bloody diarrhoea and abdominal pain. There was drop of hemoglobin from 14 to 7.6, he got 2 U of PRBC. Got GI scopes yesterday, restarted patient on prednisone. responding well. No bloody bowel movement, hemoglobin is stable . Patient is being transferred to the floor today . Drips: None Access: Peripheral IV: Right Antecubital 1 day Vital Signs: Blood pressure 118/69, pulse 59, temperature 99.3 F (37.4 C ), temperature source Temporal, resp. rate 15, height 6' 3" (1.905 m), weight 240 lb (108.9 kg), SpO2 97 %. Saturating in the room air. I/O: Intake/Output Summary (Last 24 hours) at 03/15/2019 0922 Last data filed at 03/15/2019 0800 Gross per 24 hour Intake 1440 ml Output 1750 ml Net -310 ml CONSTITUTIONAL: no cardiopulmonary distress EYES: conjunctivae/corneas clear, PERRL, EOMs intact HENT: normocephalic, atraumatic, moist oral and nasal mucosa RESPIRATORY: clear to auscultation bilaterally, no wheezing, no crackles CARDIOVASCULAR: regular rate and rhythm, no murmurs, no JVD, no pedal edema GASTROINTESTINAL: mild tenderness in the abdomen. Bowel sound intact.scars of previous surgery present. MUSCULOSKELETAL: no obvious deformities noted SKIN: warm and dry, intact, without obvious lesions NEUROLOGICAL: alert and oriented x 3, No focal deficits. PSYCHIATRIC: appropriate to circumstances Data: Recent Labs 03/14/19 0819 03/14/19 1417 03/15/19 0336 WBC 13.73* 14.92* 15.26* HGB 7.6* 10.4* 10.2* HCT 23.7* 32.1* 31.4* PLAT 283 308 317 Recent Labs 03/14/19 0713 03/14/19 0819 03/15/19 0336 NA 138 139 134 K 5.4* 4.2 4.2 CL 108* 113* 104 CO2 26 23 26 GLUCOSE 101* 91 116* BUN 32* 28* 17 CREATININE 0.9 0.8 0.7* EGFR >60 >60 >60 CALCIUM 7.9* 6.4* 8.5 TP 5.5* -- 5.6* ALBUMIN 3.2* -- 3.2* ALK 40 -- 41 AST 14* -- 16* ALT 33 -- 27 TBILI 0.2 -- 0.5 INR Date Value Ref Range Status 03/15/2019 1.09 0.88 - 1.13 Ratio Final Comment: INR Therapeutic Range: 2.0 - 3.5 No results found for: PH, PCO2, PO2, SAT, BE Assessment/Plan: 34 Y M with PMH of ulcerative colitis ICU team consulted for acute blood loss anemia Ulcerative pouchitis in setting of Ulcerative colitis Ulcerative colitis dx 2008 s/p proctocolectomy ileoanal pouch with ileostomy 2014 with small bowel ileostomy closure 05/2015. c with ileal pouchitis Presented with bloody stool , was on methyl prednisolone at home Last endoscopy had concerns for new onset crohn's disease with ilelitis with possible intraepithelial lesion. Repeat sigmoidoscopy with multiple ulcers in the J pouch without erythema without proximal ileal lesion GI is on board Diet as tolerated. Prednisone day - 2 (prednisone rapid taper 10mg every 3day ) Follow up with Dr. Perez for follow up of suspected neoplasia and make a plan for IBD biologics Non bleeding superficial gastric ulcers with duodenopathy As per the UGI done yesterday Etiology - steroids induced/NSAIDS Continue steroid in setting of ulcerative pouchitis Avoid NSAIDs Continue protonix BID Follow up with GI as outpatient. Acute blood loss anemia /resolved In setting of LGI bleed from ulcerative colitis Status post 2 U of PRBC, hemoglobin stable >10 this time No more episodes of bloody stool Sedation : not needed Pain control : not needed Nutrition: regular diet DVT Px: no chemical anticoagulant in setting of lower GI bleed Stress Ulcer Px: protonix Glucose control: as ICU protocol Skin Care needs: as ICU protocol Disposition: patient is stable to be transferred to the floor, He needs to be monitored for the possible decompensation and GI bleeding. The above assessment and plan was discussed with Dr Torres. Author: eNlla Holm MD Associated attestation - Ayden Torres MD - 03/16/2019 8:14 [facility] Supervising MD Documentation Date of Service: 03/15/2019 B# [id number] I saw and evaluated the patient. Discussed with resident and agree with the resident's findings andplan as documented in the resident's note. Ayden Torres MD Supervising Physiciandocumented in this encounter Plan of Treatment Date Type Specialty Care Team Description 03/29/2019 Office Visit General Surgery Alexandru Perez MD [address] [address] [phone] 04/07/2019 Office Visit Family Practice Wayne Vazquez MD [address] [place] [address] [phone] 04/25/2019 GI Procedure Gastroenterology Oren James DO [address] [address] [phone] Name Type Priority Associated Order Schedule Diagnoses UGI/EGD IN GI SUITE Diagnostic/Surgica Routine TOMORROW - GENERAL l Procedures USE for 1 Occurrences starting 03/14/2019 until 03/14/2019 FLEXIBLE Diagnostic/Surgica Routine TOMORROW - GENERAL SIGMOIDOSCOPY l Procedures USE for 1 Occurrences starting 03/14/2019 until 03/14/2019 Health Maintenance Due Date Last Done Comments DTaP/Tdap/Td Vaccines (1 - 02/13/1996 Tdap) INFLUENZA VACCINE (#1) 2018 11/09/2014, 02/27/2012 DEPRESSION SCREENING 03/03/2020 03/03/2019, 03/03/2019 HEPATITIS A IMMUNIZATION Aged Out No longer [...] Problems Progress Depression Depression 18 No sabino Vazquez (PHQ-9) (03/03/2019 MD Wayne total score < 5 9:08 AM EST) Note: This is an individualized treatment (depression) goal for Carlos Arora: Displayed above is your goal for a depression screening (PHQ-9) score that would indicate good control of your depression. Keep a regular sleep schedule Lifestyle No Wayne Vazquez MD Note: This is an individualized lifestyle goal for Carlos Maite: Please maintain a regular sleep schedule. This may help with some symptoms of depression. Take all prescribed medications as directed Self-management No Wayne Vazquez MD Note: This is an individualized self-management goal for Carlos Maite: Please take all prescribed medications as directed. [...] ongoing basis. documented as of this encounter Procedures Procedure Name Priority Date/Time Associated Comments Diagnosis CBC WITH DIFFERENTIAL Routine 03/16/2019 5:10 Results for this AM EST procedure are in the results section. MAGNESIUM LEVEL Routine 03/16/2019 5:10 Results for this AM EST procedure are in the results section. BASIC METABOLIC PANEL Routine 03/16/2019 5:10 Results for this AM EST procedure are in the results section. CBC WITH DIFFERENTIAL STAT 03/15/2019 3:36 Results for this AM EST procedure are in the results section. MAGNESIUM LEVEL STAT 03/15/2019 3:36 Results for this AM EST procedure are in the results section. COMPREHENSIVE STAT 03/15/2019 3:36 Results for this METABOLIC PANEL AM EST procedure are in the results section. PROTHROMBIN TIME STAT 03/15/2019 3:36 Results for this AM EST procedure are in the results section. PARTIAL STAT 03/15/2019 3:36 Results for this THROMBOPLASTIN TIME AM EST procedure are in the results section. HC GLUCOSE, BY Routine 03/15/2019 12:01 Results for this MONITOR AM EST procedure are in the results section. HC GLUCOSE, BY Routine 03/14/2019 9:08 Results for this MONITOR PM EST procedure are in the results section. CT HEAD WITHOUT IV STAT 03/14/2019 7:14 Results for this CONTRAST PM EST procedure are in the results section. FLEXIBLE Routine 03/14/2019 3:32 Results for this SIGMOIDOSCOPY NOTE PM EST procedure are in the results section. UPPER GI ENDOSCOPY Routine 03/14/2019 3:31 Results for this REPORT PM EST procedure are in the results section. ENDOSCOPY UPPER GI Planned Trip to 03/14/2019 3:22 OR PM EST SIGMOIDOSCOPY Planned Trip to 03/14/2019 3:22 FLEXIBLE OR PM EST CBC NO DIFFERENTIAL Routine 03/14/2019 2:17 Results for this PM EST procedure are in the results section. TRANSFUSE RED CELLS STAT 03/14/2019 1:36 PM EST HC GLUCOSE, BY Routine 03/14/2019 1:03 Results for this MONITOR PM EST procedure are in the results section. C. DIFFICILE (STOOL) STAT 03/14/2019 12:26 Results for this PM EST procedure are in the results section. LACTATE,REPEAT 2-4 HR Routine 03/14/2019 12:07 Results for this POST INITIAL PM EST procedure are in the results section. TRANSFUSE RED CELLS STAT 03/14/2019 12:[address] ABDOMEN PELVIS STAT 03/14/2019 8:52 Results for this ANGIOGRAPHY AORTA AM EST procedure are in the results section. BASIC METABOLIC PANEL STAT 03/14/2019 8:19 Results for this AM EST procedure are in the results section. CBC NO DIFFERENTIAL STAT 03/14/2019 8:19 Results for this AM EST procedure are in the results section. LACTIC ACID (LAB) STAT 03/14/2019 7:50 Results for this AM EST procedure are in the results section. IN PT/ED 12 LEAD EKG STAT 03/14/2019 7:38 Results for this AM EST procedure are in the results section. CBC WITH DIFFERENTIAL STAT 03/14/2019 7:13 Results for this AM EST procedure are in the results section. TYPE AND SCREEN STAT 03/14/2019 7:13 Results for this AM EST procedure are in the results section. PREPARE RED CELLS STAT 03/14/2019 7:13 Results for this LEUKOREDUCED AM EST procedure are in the results section. COMPREHENSIVE STAT 03/14/2019 7:13 Results for this METABOLIC PANEL AM EST procedure are in the results section. PROTHROMBIN TIME STAT 03/14/2019 7:13 Results for this AM EST procedure are in the results section. PARTIAL STAT 03/14/2019 7:13 Results for this THROMBOPLASTIN TIME AM EST procedure are in the results section. documented in this encounter Results MAGNESIUM LEVEL (03/16/2019 5:10 AM EST) Magnesium 2.1 1.6 - 2.3 MG/DL [facility] Specimen Blood - Blood specimen (specimen) Performing Organization Address City/State/Zipcode Phone Number [facility] [address] [place] [address] BASIC METABOLIC PANEL (03/16/2019 5:10 AM EST) Glucose 112 (H) 70 - 99 mg/dl [facility] BUN 15 9 - 20 mg/dl [facility] Creatinine 0.8 0.8 - 1.5 mg/dl [facility] Sodium 137 134 - 145 mmol/L [facility] Potassium 4.2 3.5 - 5.1 mmol/L [facility] Chloride 102 98 - 107 mmol/L [facility] CO2 30 22 - 30 mmol/L [facility] Calcium 8.9 8.3 - 10.1 mg/dl [facility] eGFR >60 See Interpretation [facility] Comment: Below ml/min/1.73ml GROUP Estimated GFR Interpretation: LABORATORY Above 60ml/min/1.73m2 = Normal Renal Function 30-59 ml/min/1.73m2 = Stage 3 Chronic Kidney Disease 15-29 ml/min/1.73m2 = Stage 4 Chronic Kidney Disease Less than 15 ml/min/1.73m2 = Stage 5 Chronic Kidney Disease The GFR value is calculated using the Modification of Diet in Renal Disease ( MDRD) Study Equation which can be found at: https://www.kidney.org/content/wjti-cyykq-lxblewme BUN/Creatinine 19 6 - 22 RATIO [facility] Anion Gap 5 3 - 11 mmol/L [facility] Specimen Blood - Blood specimen (specimen) Performing Organization Address City/State/Zipcode Phone Number [facility] [address] [place] [address] [phone] CBC WITH DIFFERENTIAL (03/16/2019 5:10 AM EST) WBC Count 16.37 (H) 4.23 - 9.07 K/uL [facility] RBC Count 3.29 (L) 4.30 - 5.89 M/UL [facility] Hemoglobin 9.6 (L) 13.7 - 17.5 g/dL [facility] Hematocrit 30.0 (L) 40.1 - 51.0 % [facility] MCV 91.2 79.0 - 92.2 FL [facility] MCH 29.2 25.7 - 32.2 PG [facility] MCHC 32.0 (L) 32.3 - 36.5 g/dL [facility] Platelet Count 329 163 - 337 K/uL [facility] MPV 10.0 9.4 - 12.4 FL [facility] RDW 15.8 (H) 11.6 - 14.4 % [facility] Neutrophil % 82.7 (H) 34.0 - 67.9 % [facility] Lymphocyte % 9.2 (L) 21.8 - 53.1 % [facility] Monocyte % 7.0 5.3 - 12.2 % [facility] Eosinophil % 0.0 (L) 0.8 - 7.0 % [facility] Basophil % 0.2 0.2 - 1.2 % [facility] nRBC % 0.0 0.0 - 0.2 % [facility] Neutrophil # 13.55 (H) 1.78 - 5.38 K/UL [facility] Lymphocyte # 1.50 1.32 - 3.57 K/UL [facility] Monocyte # 1.15 (H) 0.30 - 0.82 K/UL [facility] Eosinophil # 0.00 (L) 0.04 - 0.54 K/UL [facility] Basophil # 0.03 0.01 - 0.08 K/UL [facility] Immature Gran % 0.9 (H) 0.0 - 0.4 % [facility] Immature Gran # 0.14 (H) 0.00 - 0.03 K/uL [facility] NRBC # 0.00 0.00 - 0.12 K/uL [facility] Specimen Blood - Blood specimen (specimen) Performing Organization Address [facility] Phone Number [facility] [address] [place] [address] [phone] MAGNESIUM LEVEL (03/15/2019 3:36 AM EST) Magnesium 2.0 1.6 - 2.3 MG/DL [facility] Specimen Blood - Blood specimen (specimen) Performing Organization Address [facility] Phone Number [facility] [address] [place] [address] PARTIAL THROMBOPLASTIN TIME (03/15/2019 3:36 AM EST) PTT 22.3Comment: 21.3 - 35.9 SEC [facility] Reference range [facility] updated 12/14/2018. Specimen Blood - Blood specimen (specimen) Performing Organization Address [facility] Phone Number [facility] [address] [place] [address] [phone] PROTHROMBIN TIME (03/15/2019 3:36 AM EST) INR 1.09Comment: INR 0.88 - 1.13 [facility] Therapeutic Range: Ratio [facility] 2.0 - 3.5 Protime 13.9Comment: 12.0 - 14.5 sec [facility] Reference range [facility] updated 12/14/2018. Specimen Blood - Blood specimen (specimen) Performing Organization Address City/State/Zipcode Phone Number [facility] [address] [place] [address] COMPREHENSIVE METABOLIC PANEL (03/15/2019 3:36 AM EST) Sodium 134 134 - 145 mmol/L [facility] Potassium 4.2 3.5 - 5.1 mmol/L [facility] Chloride 104 98 - 107 mmol/L [facility] CO2 26 22 - 30 mmol/L [facility] Calcium 8.5 8.3 - 10.1 mg/dl [facility] Albumin 3.2 (L) 3.5 - 5.0 g/dl [facility] BUN 17 9 - 20 mg/dl [facility] Creatinine 0.7 (L) 0.8 - 1.5 mg/dl [facility] Glucose 116 (H) 70 - 99 mg/dl [facility] Total Protein 5.6 (L) 6.3 - 8.2 g/dl [facility] Total Bilirubin 0.5 0.0 - 1.1 MG/DL [facility] AST 16 (L) 17 - 59 U/L [facility] ALT 27 21 - 72 U/L [facility] Alkaline 41 40 - 150 U/L [facility] Phosphatase [facility] eGFR >60 See Interpretation [facility] Comment: Below ml/min/1.73ml GROUP Estimated GFR Interpretation: Sq LABORATORY Above 60ml/min/1.73m2 = Normal Renal Function 30-59 ml/min/1.73m2 = Stage 3 Chronic Kidney Disease 15-29 ml/min/1.73m2 = Stage 4 Chronic Kidney Disease Less than 15 ml/min/1.73m2 = Stage 5 Chronic Kidney Disease The GFR value is calculated using the Modification of Diet in Renal Disease ( MDRD) Study Equation which can be found at: https://www.kidney.org/content/kcmt-wxdtr-wlumilmw BUN/Creatinine 24 (H) 6 - 22 RAT[facility] Anion Gap 4 3 - 11 mmol/L [facility] A/G Ratio 1.3 0.8 - 2.0 ratio [facility] Specimen Blood - Blood specimen (specimen) Performing Organization Address City/State/Zipcode Phone Number [facility] [address] [place] [address] CBC WITH DIFFERENTIAL (03/15/2019 3:36 AM EST) WBC Count 15.26 (H) 4.23 - 9.07 K/uL [facility] RBC Count 3.49 (L) 4.30 - 5.89 M/UL [facility] Hemoglobin 10.2 (L) 13.7 - 17.5 g/dL [facility] Hematocrit 31.4 (L) 40.1 - 51.0 % [facility] MCV 90.0 79.0 - 92.2 FL [facility] MCH 29.2 25.7 - 32.2 PG [facility] MCHC 32.5 32.3 - 36.5 g/dL [facility] Platelet Count 317 163 - 337 K/uL [facility] MPV 9.8 9.4 - 12.4 FL [facility] RDW 16.3 (H) 11.6 - 14.4 % [facility] Neutrophil % 89.0 (H) 34.0 - 67.9 % [facility] Lymphocyte % 5.8 (L) 21.8 - 53.1 % [facility] Monocyte % 3.1 (L) 5.3 - 12.2 % [facility] Eosinophil % 0.2 (L) 0.8 - 7.0 % [facility] Basophil % 0.3 0.2 - 1.2 % [facility] nRBC % 0.0 0.0 - 0.2 % [facility] Neutrophil # 13.58 (H) 1.78 - 5.38 K/UL [facility] Lymphocyte # 0.88 (L) 1.32 - 3.57 K/UL [facility] Monocyte # 0.48 0.30 - 0.82 K/UL [facility] Eosinophil # 0.03 (L) 0.04 - 0.54 K/UL [facility] Basophil # 0.05 0.01 - 0.08 K/UL [facility] Immature Gran % 1.6 (H) 0.0 - 0.4 % [facility] Immature Gran # 0.24 (H) 0.00 - 0.03 K/uL [facility] NRBC # 0.00 0.00 - 0.12 K/uL [facility] Specimen Blood - Blood specimen (specimen) Performing Organization Address City/[facility] Phone Number [facility] [address] [place] [address] GLUCOSE (POCT) (03/15/2019 12:01 AM EST) Glucose POCT 109 (H) 70 - 99 mg/dl POINT OF CARE Result Comment: TESTING Performed at: [facility] POCT Victor Manuel Zaragoza MD, Laboratory Hydrodynamics Teacher [address] [place] [address] Specimen Performing Organization Address [facility] Phone Number POINT OF CARE TESTING GLUCOSE (POCT) (03/14/2019 9:08 PM EST) Glucose POCT 97 70 - 99 mg/dl POINT OF CARE Result Comment: TESTING Performed at: [facility] POCT Victor Manuel Zaragoza MD, Laboratory Hydrodynamics Teacher [address] [place] [address] Specimen Performing Organization Address [facility] Phone Number POINT OF CARE TESTING CT HEAD WITHOUT IV CONTRAST (03/14/2019 7:14 PM EST) Specimen Impressions Performed At No evidence of acute intracranial abnormality is seen. Urgency: Routine. This is a routine medical imaging report. Recommendation: No specific imaging recommendation. Signed by Ta Elam MD, MHA, FCPS on 03/14/2019 7:55 PM Narrative Performed At Procedure(s): CT HEAD WITHOUT IV CONTRAST Date of service: 03/14/2019 7:02 PM Provided clinical information: 34 years, Male, "Headache, acute, norm neuro exam" Procedure and materials: Standard protocol. Contrast: None Comparison studies: None. CT Scan of the Head without Contrast: Technique: Helical imaging is acquired from base of the skull to vertex and data is reformatted at 4 mm increments with MPR reformation performed in axial, sagittal and coronal plane. Findings: No evidence seen of intra or extra-axial hemorrhage, mass, or vascular territory infarct. Starkey-white matter differentiation appears well maintained. The suprasellar and the parasellar regions are unremarkable. Basal cisterns are intact. Ventricles are normal in morphology. The brain stem region appears unremarkable. There is no focal pituitary fossa or posterior cranial fossa abnormality seen. Mild mucoperiosteal prominence is seen of ethmoidal air cells. No fluid is seen in the paranasal sinuses. Mild deviation of nasal septum is seen to the left. Mastoid air cells appear clear. The globes and intraorbital contents are within normal limits. There is no retrobulbar inflammation. No gross calvarial abnormality is seen. Soft tissue : Unremarkable Procedure Note Interface, Rad Results - 03/14/2019 7:57 PM EST Procedure(s): CT HEAD WITHOUT IV CONTRAST Date of service: 03/14/2019 7:02 PM Provided clinical information: 34 years, Male, "Headache, acute, norm neuro exam" Procedure and materials: Standard protocol. Contrast: None Comparison studies: None. CT Scan of the Head without Contrast: Technique: Helical imaging is acquired from base of the skull to vertex and data is reformatted at 4 mm increments with MPR reformation performed in axial, sagittal and coronal plane. Findings: No evidence seen of intra or extra-axial hemorrhage, mass, or vascular territory infarct. Starkey-white matter differentiation appears well maintained. The suprasellar and the parasellar regions are unremarkable. Basal cisterns are intact. Ventricles are normal in morphology. The brain stem region appears unremarkable. There is no focal pituitary fossa or posterior cranial fossa abnormality seen. Mild mucoperiosteal prominence is seen of ethmoidal air cells. No fluid is seen in the paranasal sinuses. Mild deviation of nasal septum is seen to the left. Mastoid air cells appear clear. The globes and intraorbital contents are within normal limits. There is no retrobulbar inflammation. No gross calvarial abnormality is seen. Soft tissue : Unremarkable IMPRESSION No evidence of acute intracranial abnormality is seen. Urgency: Routine. This is a routine medical imaging report. Recommendation: No specific imaging recommendation. Signed by Ta Elam MD, [facility] on 03/14/2019 7:55 PM FLEXIBLE SIGMOIDOSCOPY NOTE (03/14/2019 3:32 PM EST) [facility] Sigmoidoscopy Patient Name: Carlos Arora Procedure Date: 03/14/2019 3:32 PM Date of : 1985 Admit Type: Inpatient Age: 34 Room: 16 Gender: Male Note Status: Finalized Attending MD: OREN JAMES DO Instrument Name: [id number] __ Procedure: Flexible Sigmoidoscopy Indications: Hematochezia, Melena Providers: OREN JAMES DO, KOSTAS POE MD (Fellow), Nia Lopez RN (Nurse) Patient Profile: This is a 34 year old male. Refer to note in patient chart for documentation of history and physical. Referring MD: ERIN CLAY (Referring MD) Medicines: Monitored Anesthesia Care Complications: No immediate complications. __ Procedure: The patient's current medications and allergies were reviewed and recorded in the nurses notes. The patient was made aware of the risk of the procedure which can include: bleeding, infection, perforation, an adverse reaction to sedation, and a risk of missed lesions, among others. The patient appeared to understand. An opportunity for questions was provided, and an informed consent form was signed. The scope was passed under direct vision. Throughout the procedure, the patient's blood pressure, pulse EKG, and oxygen saturations were monitored continuously. The Colonoscope was introduced through the anus and advanced to 60 cm from the anal verge. The flexible sigmoidoscopy was accomplished with ease. The quality of the bowel preparation was poor. Findings: There was evidence of a prior surgical anastomosis at the anus consistent with known history of IPAA. This was patent. Multiple ulcers were found at in the j-pouch without identifed surounding erythema. No bleeding was present. No stigmata of bleeding identified at the ulcers. Impression: - Preparation of the colon was poor. - Patent surgical anastomosis -known IPAA. - Multiple ulcers in the ileal j- pouch without surrounding erythema. The proximal ileum appeared endoscopically normal. - No specimens collected. Recommendation: - Return patient to hospital [facility] for ongoing care. - Advance diet as tolerated. - Continue present medications. - No aspirin, ibuprofen, naproxen, or other non-steroidal anti-inflammatory drugs. - Given no surrounding erythema, with the appearance of the ulcers, this may represent NSAID/steroid induced ulcers in the pouch. However, given reported history can not entirely exclude Crohns although no obvious areas of inflammation outside of the ulcerated areas. - Repeat flexible sigmoidoscopy PRN. Procedure Code(s): --- Professional --- 63118, Sigmoidoscopy, flexible; diagnostic, including collection of specimen(s) by brushing or washing, when performed (separate procedure) Diagnosis Code(s): --- Professional --- K92.1, Melena (includes Hematochezia) CPT copyright 2017 [employer]. All rights reserved. The codes documented in this report are preliminary and upon grove superintendent review may be revised to meet current compliance requirements. Attending Participation: I was present and participated during the entire procedure from insertion to removal of the endoscope. OREN JAMES DO 03/14/2019 4:09:40 PM KOSTAS POE MD Number of Addenda: 0 Note Initiated On: 03/14/2019 3:32 PM CC Letter to: WAYNE VAZQUEZ MD (CC) Estimated Blood Loss: Estimated blood loss: none. Specimen Performing Organization Address City/State/Zipcode Phone Number [facility] UPPER GI ENDOSCOPY REPORT (03/14/2019 3:31 PM EST) Upper GI endoscopy [facility] __ Patient Name: Carlos Arora Procedure Date: 03/14/2019 3:31 PM Date of : 1985 Admit Type: Inpatient Age: 34 Room: OR Gender: Male Note Status: Finalized Attending MD: OREN JAMES DO Instrument Name: [id number] __ Procedure: Upper GI endoscopy Indications: Hematochezia, Melena Providers: OREN JAMES DO, NEERAJ MANGLA, MD (Fellow), Opal Snell, RN (Nurse) Patient Profile: This is a 34 year old male. Refer to note in patient chart for documentation of history and physical. Referring MD: ERIN CLAY (Referring MD) Medicines: Monitored Anesthesia Care Complications: No immediate complications. __ Procedure: The patient's current medications and allergies were reviewed and recorded in the nurses notes. The patient was made aware of the risk of the procedure which can include: bleeding, infection, perforation, an adverse reaction to sedation, and a risk of missed lesions, among others. The patient appeared to understand. An opportunity for questions was provided, and an informed consent form was signed. The scope was passed under direct vision. Throughout the procedure, the patient's blood pressure, pulse EKG, and oxygen saturations were monitored continuously. The Endoscope was introduced through the mouth, and advanced to the second part of duodenum. The Z-line was located at: 42cm The upper GI endoscopy was accomplished with ease. The patient tolerated the procedure well. Findings: The second portion of the duodenum and third portion of the duodenum were normal. Patchy mildly erythematous mucosa without active bleeding and with no stigmata of bleeding was found in the duodenal bulb. Four non-bleeding cratered and superficial gastric ulcers with no stigmata of bleeding were found in the gastric antrum. The largest lesion was 10 mm in largest dimension. The exam of the stomach was otherwise normal. The examined esophagus was normal. Impression: - Normal second portion of the duodenum and third portion of the duodenum. - Erythematous duodenopathy. - Non-bleeding gastric ulcers with no stigmata of bleeding. - Normal esophagus. - No specimens collected. Recommendation: - Return patient to hospital cody for ongoing care. - Advance diet as tolerated. - Continue present medications. - Use a proton pump inhibitor PO BID for 8 weeks. - Repeat upper endoscopy in 6 weeks to check healing. - Perform pouchoscopy today as planned. Procedure Code(s): --- Professional --- 60255, Esophagogastroduodenoscopy, flexible, transoral; diagnostic, including collection of specimen(s) by brushing or washing, when performed (separate procedure) Diagnosis Code(s): --- Professional --- K92.1, Melena (includes Hematochezia) CPT copyright 2017 [employer]. All rights reserved. The codes documented in this report are preliminary and upon grove superintendent review may be revised to meet current compliance requirements. Attending Participation: I was present and participated during the entire procedure from insertion to removal of the endoscope. OREN JAMES, 03/14/2019 3:46:09 PM KOSTAS POE MD Number of Addenda: 0 Note Initiated On: 03/14/2019 3:31 PM CC Letter to: WAYNE VAZQUEZ MD (CC) Estimated Blood Loss: Estimated blood loss: none. Specimen Performing Organization Address City/[facility] Phone Number [facility] CBC NO DIFFERENTIAL (03/14/2019 2:17 PM EST) WBC Count 14.92 (H)Comment: 4.23 - 9.07 [facility] was K/uL [facility] changed 02/25/2018. Please note updated reference range and units. RBC Count 3.54 (L) 4.30 - 5.89 [facility] [place] [facility] M/UL [facility] Hemoglobin 10.4 (L) 13.7 - 17.5 [facility] g/dL [facility] Hematocrit 32.1 (L) 40.1 - 51.0 % [facility] MCV 90.7 79.0 - 92.2 [facility] FL [facility] MCH 29.4 25.7 - 32.2 [facility] PG [facility] MCHC 32.4 32.3 - 36.5 [facility] g/dL [facility] Platelet Count 308 163 - 337 [place] [place] [facility] K/uL [facility] MPV 9.6 9.4 - 12.4 FL [facility] RDW 16.1 (H) 11.6 - 14.4 % [facility] Specimen Blood - Blood specimen (specimen) Performing Organization Address City/State/Zipcode Phone Number [facility] [address] [place] [address] TRANSFUSE RED CELLS (03/14/2019 1:36 PM EST)TRANSFUSE RED CELLS (03/14/2019 1: 36 PM EST)GLUCOSE (POCT) (03/14/2019 1:03 PM EST) Glucose POCT 94 70 - 99 mg/dl POINT OF CARE Result Comment: TESTING Performed at: [facility] POCT Victor Manuel Zaragoza MD, Laboratory Hydrodynamics Teacher [address] [place] [address] Specimen Performing Organization Address City/[facility] Phone Number POINT OF CARE TESTING C. DIFFICILE (STOOL) (03/14/2019 12:26 PM EST) C.difficile NegativeComment: Negative [facility] Testing performed by LABORATORY PCR. Specimen Stool - Stool specimen (specimen) Performing Organization Address [facility] Phone Number [facility] [address] [place] [address] LACTATE,REPEAT 2-4 HR POST INITIAL (03/14/2019 12:07 PM EST) Lactic Acid 1.6 0.7 - 2.1 MMOL/L [facility] Specimen Blood - Blood specimen (specimen) Performing Organization Address [facility] Phone Number [facility] [address] [place] [address] [phone] TRANSFUSE RED CELLS (03/14/2019 12:01 PM EST)CT ABDOMEN PELVIS ANGIOGRAPHY AORTA (03/14/2019 8:52 AM EST) Specimen Impressions Performed At The abdominal aorta, visceral arteries and iliac arteries enhance normally with no indication of inflammatory changes, aneurysm or thrombosis. No indication of an active bleeding site. Postoperative changes associated with known colectomy and ileal pouch are described without significant change from prior study, and without indication of acute inflammatory bowel disease, abnormal distention or obstruction. Urgency: Routine. This is a routine medical imaging report. Recommendation: No specific imaging recommendation. Signed by Jayson Dumas MD on 03/14/2019 10:11 AM Narrative Performed At Procedure(s): CT ABDOMEN PELVIS ANGIOGRAPHY AORTA Date of service: 03/14/2019 8:28 AM Provided clinical information: 34 years, Male, "hx ulcerative colitis with pouch in place; GI bleeding" Procedure and materials: Standard protocol. Contrast: Omnipaque 350 IV Comparison studies: CT abdomen pelvis with contrast 07/12/2017 Observations: The precontrast contrast abdominal aorta is normal in contour and wall thickness. Postcontrast images demonstrate normal intraluminal opacification of the proximal and distal abdominal aorta. No wall enhancement or periaortic enhancement. The renal arteries are normally patent bilaterally with symmetrical parenchymal enhancement. The major visceral arteries including the celiac, superior mesenteric and inferior mesenteric artery are normally enhanced. The iliac arteries enhance normally bilaterally. Delayed post arterial phase images demonstrate normal enhancement with particular attention to the mesenteric vascular structures and portal venous system. The intrahepatic portal veins enhance normally. Solid organs including the liver, pancreas, spleen, kidneys and adrenal glands enhance normally. The gallbladder is normal. No abnormal bile duct dilatation. The colon is surgically absent. An enteric rectal anastomosis appears intact without wall thickening or surrounding mesenteric edema. Small scattered vic structures are present throughout the mesentery that is similar to prior study. No interval vic enlargement is identified. Small bowel loops are not abnormally distended. No marked small bowel wall thickening to suggest acute inflammatory small bowel disease. Procedure Note Interface, Rad Results - 03/14/2019 10:13 AM EST Procedure(s): CT ABDOMEN PELVIS ANGIOGRAPHY AORTA Date of service: 03/14/2019 8:28 AM Provided clinical information: 34 years, Male, "hx ulcerative colitis with pouch in place; GI bleeding" Procedure and materials: Standard protocol. Contrast: Omnipaque 350 IV Comparison studies: CT abdomen pelvis with contrast 07/12/2017 Observations: The precontrast contrast abdominal aorta is normal in contour and wall thickness. Postcontrast images demonstrate normal intraluminal opacification of the proximal and distal abdominal aorta. No wall enhancement or periaortic enhancement. The renal arteries are normally patent bilaterally with symmetrical parenchymal enhancement. The major visceral arteries including the celiac, superior mesenteric and inferior mesenteric artery are normally enhanced. The iliac arteries enhance normally bilaterally. Delayed post arterial phase images demonstrate normal enhancement with particular attention to the mesenteric vascular structures and portal venous system. The intrahepatic portal veins enhance normally. Solid organs including the liver, pancreas, spleen, kidneys and adrenal glands enhance normally. The gallbladder is normal. No abnormal bile duct dilatation. The colon is surgically absent. An enteric rectal anastomosis appears intact without wall thickening or surrounding mesenteric edema. Small scattered vic structures are present throughout the mesentery that is similar to prior study. No interval vic enlargement is identified. Small bowel loops are not abnormally distended. No marked small bowel wall thickening to suggest acute inflammatory small bowel disease. IMPRESSION The abdominal aorta, visceral arteries and iliac arteries enhance normally with no indication of inflammatory changes, aneurysm or thrombosis. No indication of an active bleeding site. Postoperative changes associated with known colectomy and ileal pouch are described without significant change from prior study, and without indication of acute inflammatory bowel disease, abnormal distention or obstruction. Urgency: Routine. This is a routine medical imaging report. Recommendation: No specific imaging recommendation. Signed by Jayson Dumas MD on 03/14/2019 10:11 AM BASIC METABOLIC PANEL (03/14/2019 8:19 AM EST) Glucose 91 70 - 99 mg/dl [facility] BUN 28 (H) 9 - 20 mg/dl [facility] Creatinine 0.8 0.8 - 1.5 mg/dl [facility] Sodium 139 134 - 145 mmol/L [facility] Potassium 4.2 3.5 - 5.1 mmol/L [facility] Chloride 113 (H) 98 - 107 mmol/L [facility] CO2 23 22 - 30 mmol/L [facility] Calcium 6.4 (L) 8.3 - 10.1 mg/dl [facility] eGFR >60 See Interpretation [facility] Comment: Below ml/min/1.73ml GROUP Estimated GFR Interpretation: Sq LABORATORY Above 60ml/min/1.73m2 = Normal Renal Function 30-59 ml/min/1.73m2 = Stage 3 Chronic Kidney Disease 15-29 ml/min/1.73m2 = Stage 4 Chronic Kidney Disease Less than 15 ml/min/1.73m2 = Stage 5 Chronic Kidney Disease The GFR value is calculated using the Modification of Diet in Renal Disease ( MDRD) Study Equation which can be found at: https://www.kidney.org/content/jxpr-qwxoi-gidadtwm BUN/Creatinine 35 (H) 6 - 22 RATIO [facility]ORY Anion Gap 3 3 - 11 mmol/L [facility] Specimen Blood - Blood specimen (specimen) Performing Organization Address City/State/Zipcode Phone Number [facility] [address] [place] [address] CBC NO DIFFERENTIAL (03/14/2019 8:19 AM EST) WBC Count 13.73 (H)Comment: 4.23 - 9.07 [facility] Methodology was K/uL GROUP LABORATORY changed 02/25/2018. Please note updated reference range and units. RBC Count 2.50 (L) 4.30 - 5.89 [facility] M/UL [facility] Hemoglobin 7.6 (L) 13.7 - 17.5 [facility] g/dL [facility] Hematocrit 23.7 (L) 40.1 - 51.0 % [facility] MCV 94.8 (H) 79.0 - 92.2 [facility] FL GROUP LAB[facility]ATORY MCH 30.4 25.7 - 32.2 [facility] PG GROUP LABORATORY MCHC 32.1 (L) 32.3 - 36.5 [facility] g/dL GROUP [facility]ORY Platelet Count 283 163 - 337 [facility] K/uL [facility] MPV 9.9 9.4 - 12.4 FL [facility] RDW 14.6 (H) 11.6 - 14.4 % [facility] Specimen Blood - Blood specimen (specimen) Performing Organization Address City/[facility] Phone Number [facility] [address] [place] [address] [phone] LACTIC ACID (LAB) (03/14/2019 7:50 AM EST) Lactic Acid 2.1 0.7 - 2.1 MMOL/L [facility] Specimen Blood - Blood specimen (specimen) Performing Organization Address City/[facility] Cent[facility]ode Phone Number [facility] [address] [place] [address] [phone] IN PT/ED 12 LEAD EKG (03/14/2019 7:38 AM EST) Ventricular Rate 67 BPM CARDIOLOGY DEPARTMENT Atrial rate 67 BPM CARDIOLOGY DEPARTMENT P-R Interval 132 ms CARDIOLOGY DEPARTMENT QRS Duration 98 ms CARDIOLOGY DEPARTMENT Q-T Interval 404 ms CARDIOLOGY DEPARTMENT QTC Calculation 426 ms CARDIOLOGY (Bezet) DEPARTMENT P Mona 55 degrees CARDIOLOGY DEPARTMENT R Mona 2 degrees CARDIOLOGY DEPARTMENT T Mona -8 degrees CARDIOLOGY DEPARTMENT Diagnosis Line Normal sinus rhythm CARDIOLOGY ST elevation, consider early repolarization, pericarditis, or injury DEPARTMENT Abnormal ECG When compared with ECG of 09-AUG-2014 08:20, Non specific change in ST segment in Inferior leads Confirmed by CYNTHIA WILCOX DO ([id number]) ([id number]) on 03/15/2019 4:46:47 PM Specimen Narrative Performed At Performing Organization Address City/[facility] Cent[facility] Phone Number CARDIOLOGY DEPARTMENT PREPARE RED CELLS LEUKOREDUCED (03/14/2019 7:13 AM EST) RED CELLS RCL4 RED CELLS LR [facility] [id number] p.Transfus compatible 03/14/19 09:00 SCC UTYPE A POS [facility] BLOOD [facility] UNIT BLOOD RH POS [facility] B[facility]OD [facility] UPROD RCL4 GCL BLOOD BANK UNIT# [id number] [facility] BLOOD BANK DISPSTATUS transfused [facility] BLOOD BANK UNIT NUMBER =[id number] [facility] B[facility]OD [facility] PRODUCT CODE [id number] G[facility] BLOOD BANK UNIT BLOOD ABO 6200 [facility] B[facility]OD [facility] EXPIRATION DATE [id number] [facility] RED CELLS RCL4 RED CELLS LR [facility] B[facility]OD [facility] [id number] p.Transfus compatible 03/14/19 11:53 SCC UTYPE A POS [facility] BLOOD BANK UNIT BLOOD RH POS [facility] BLOOD [facility] UPROD RCL4 [facility]CL BLOOD BANK UNIT# [id number] [facility] BLOOD BANK DISPSTATUS transfused [facility]CL BLOOD BANK UNIT NUMBER =[id number] [facility]OD [facility] PRODUCT CODE [id number] [facility] BLOOD [facility] UNIT BLOOD ABO 6200 [facility] B[facility] EXPIRATION DATE [id number] [facility] Specimen Performing Organization Address City/[facility]/Zipcode Phone Number [facility] [place] [address] TYPE AND SCREEN (03/14/2019 7:13 AM EST) ABO/RH Type A POS [facility] Antibody Screen Interp NEG [facility] Specimen Blood - Blood specimen (specimen) Performing Organization Address [facility]/Zipcode Phone Number [facility] [place] [address] PARTIAL THROMBOPLASTIN TIME (03/14/2019 7:13 AM EST) PTT 20.8 (L)Comment: 21.3 - 35.9 SEC [facility] [place] [facility] Reference range GROUP LABORATORY updated 12/14/2018. Specimen Blood - Blood specimen (specimen) Performing Organization Address City/[facility]/Zipcode Phone Number [facility] [address] [place] [address] PROTHROMBIN TIME (03/14/2019 7:13 AM EST) INR 1.05Comment: INR 0.88 - 1.13 [facility] Therapeutic Range: Ratio GROUP LABORATORY 2.0 - 3.5 Protime 13.5Comment: 12.0 - 14.5 sec [facility] Reference range GROUP LABORATORY updated 12/14/2018. Specimen Blood - Blood specimen (specimen) Performing Organization Address City/State/Zipcode Phone Number [facility] [address] [facility] [place] [address] COMPREHENSIVE METABOLIC PANEL (03/14/2019 7:13 AM EST) Sodium 138 134 - 145 mmol/L [facility] Potassium 5.4 (H) 3.5 - 5.1 mmol/L [facility] Chloride 108 (H) 98 - 107 mmol/L [facility] CO2 26 22 - 30 mmol/L [facility] Calcium 7.9 (L) 8.3 - 10.1 mg/dl [facility] Albumin 3.2 (L) 3.5 - 5.0 g/dl [facility] BUN 32 (H) 9 - 20 mg/dl [facility] Creatinine 0.9 0.8 - 1.5 mg/dl [facility] Glucose 101 (H) 70 - 99 mg/dl [facility] Total Protein 5.5 (L) 6.3 - 8.2 g/dl [facility] Total Bilirubin 0.2 0.0 - 1.1 MG/DL [facility] AST 14 (L) 17 - 59 U/L [facility] ALT 33 21 - 72 U/L [facility] Alkaline 40 40 - 150 U/L [facility] Phosphatase [facility] eGFR >60 See Interpretation [facility] Comment: Below ml/min/1.73ml GROUP Estimated GFR Interpretation: Sq LABORATORY Above 60ml/min/1.73m2 = Normal Renal Function 30-59 ml/min/1.73m2 = Stage 3 Chronic Kidney Disease 15-29 ml/min/1.73m2 = Stage 4 Chronic Kidney Disease Less than 15 ml/min/1.73m2 = Stage 5 Chronic Kidney Disease The GFR value is calculated using the Modification of Diet in Renal Disease ( MDRD) Study Equation which can be found at: https://www.kidney.org/content/zdks-rkzlp-dqtzcfxx BUN/Creatinine 36 (H) 6 - 22 RATIO [facility] GROUP LABORATORY Anion Gap 4 3 - 11 mmol/L [facility] A/G Ratio 1.4 0.8 - 2.0 ratio [facility] Specimen Blood - Blood specimen (specimen) Performing Organization Address City/State/Zipcode Phone Number [facility] [address] [facility] [place] [address] CBC WITH DIFFERENTIAL (03/14/2019 7:13 AM EST) WBC Count 17.41 (H) 4.23 - 9.07 K/uL [facility] RBC Count 3.23 (L) 4.30 - 5.89 M/UL [facility] Hemoglobin 9.7 (L) 13.7 - 17.5 g/dL [facility] Hematocrit 30.4 (L) 40.1 - 51.0 % [facility] MCV 94.1 (H) 79.0 - 92.2 FL [facility] MCH 30.0 25.7 - 32.2 PG [facility] MCHC 31.9 (L) 32.3 - 36.5 g/dL [facility] Platelet Count 384 (H) 163 - 337 K/uL [facility] MPV 9.9 9.4 - 12.4 FL [facility] RDW 14.6 (H) 11.6 - 14.4 % [facility] Neutrophil % 72.1 (H) 34.0 - 67.9 % [facility] Lymphocyte % 15.5 (L) 21.8 - 53.1 % [facility] Monocyte % 8.4 5.3 - 12.2 % [facility] Eosinophil % 0.7 (L) 0.8 - 7.0 % [facility] Basophil % 0.5 0.2 - 1.2 % [facility] nRBC % 0.0 0.0 - 0.2 % [facility] Neutrophil # 12.57 (H) 1.78 - 5.38 K/UL [facility] Lymphocyte # 2.69 1.32 - 3.57 K/UL [facility] Monocyte # 1.46 (H) 0.30 - 0.82 K/UL [facility] Eosinophil # 0.12 0.04 - 0.54 K/UL [facility] Basophil # 0.08 0.01 - 0.08 K/UL [facility] Immature Gran % 2.8 (H) 0.0 - 0.4 % [facility] Immature Gran # 0.49 (H) 0.00 - 0.03 K/uL [facility] NRBC # 0.00 0.00 - 0.12 K/uL [facility] Specimen Blood - Blood specimen (specimen) Performing Organization Address City/State/Zipcode Phone Number [facility] [address] [place] [address] [phone] documented in this encounter Visit Diagnoses Diagnosis Gastrointestinal hemorrhage, unspecified gastrointestinal hemorrhage type Lower GI bleed Hemorrhage of gastrointestinal tract, unspecified documented in this encounter Administered Medications Medication Order MAR Action Action Date Dose Rate Site acetaminophen (TYLENOL) tablet Given 03/16/2019 6:49 AM EST 650 mg 650 mg 650 mg, Oral, Q4 HRS PRN, Starting Thu03/14/19 at 2007, Until Thu03/16/19 at 1352, Mild Pain (pain scale 1-3) - PO - 1st line - if immediate effect not required and patient can tolerate PO Given 03/15/2019 8:13 AM EST 650 mg Given 03/14/2019 8:30 PM EST 650 mg qqzusfjale-rfkqsjlpgohul-nspkqndg (FIORICET) Given 03/14/2019 5:11 PM EST 1 Tab 50-325-40 mg 1 Tab 1 Tab, Oral, X1, 1 dose, First dose on Thu03/14/19 at 1700, MAXIMUM 4,000 mg of acetaminophen daily., escitalopram (LEXAPRO) tablet 20 mg Given 03/16/2019 9:07 AM EST 20 mg 20 mg, Oral, DAILY, First dose on Thu03/14/19 at 1810, Until Discontinued Given 03/15/2019 8:16 AM EST 20 mg Given 03/14/2019 8:03 PM EST 20 mg iohexol (OMNIPAQUE) 350 MG/ML injectable Push 03/14/2019 8:30 AM EST 100 mL solution 100 mL 100 mL, Intravenous, NOW, 1 dose, Thu03/14/19 at 0830 normal saline bolus 1,000 mL New Bag 03/14/2019 7:35 AM EST 1,000 mL 1,000 mL, Intravenous, BOLUS, 1 dose, Thu03/14/19 at 0810 normal saline bolus 1,000 mL New Bag 03/14/2019 7:46 AM EST 1,000 mL 1,000 mL, Intravenous, BOLUS, 1 dose, Thu03/14/19 at 0840 normal saline IV New Bag 03/14/2019 12:50 PM EST 15 mL/hr Intravenous, at 15 mL/hr, CONTINUOUS, Starting Thu03/14/19 at 1250, Until Thu03/14/19 at 1410 normal saline IV New Bag 03/14/2019 9:45 PM EST 100 mL/hr Intravenous, at 100 mL/hr, CONTINUOUS, Starting Thu03/14/19 at 1420, Until Thu03/15/19 at 0739 Rate Change 03/14/2019 2:20 PM EST 100 mL/hr pantoprazole (PROTONIX) enteric coated tablet Given 03/16/2019 9:07 AM EST 40 mg 40 mg 40 mg, Oral, BID, First dose on Thu03/14/19 at 2100, Until Discontinued, This medication dosage form should NOT be crushed. Please call the inpatient Pharmacy for more information. [facility] ext. [phone] [place] ext. [phone] [facility] ext. [phone] , Given 03/15/2019 8:39 PM EST 40 mg Given 03/15/2019 8:13 AM EST 40 mg phosphate (FLEET SALINE) enema 2 Each Given 03/14/2019 12:24 PM EST 2 Each 2 Each, Rectal, BOWEL PREP, 1 dose, First dose on Thu03/14/19 at 1150, Obtain from Storeroom, phosphate (FLEET SALINE) enema 2 Each Given 03/14/2019 12:46 PM EST 2 Each 2 Each, Rectal, BOWEL PREP, 1 dose, First dose on Thu03/14/19 at 1250, Obtain from Storeroom, predniSONE (DELTASONE) tablet 40 mg Given 03/15/2019 5:24 PM EST 40 mg 40 mg, Oral, Q24 HRS, 5 doses, First dose on Thu03/14/19 at 1840, Last dose on Thu03/18/19 at 1730, Take with food., Given 03/14/2019 8:03 PM EST 40 mg ramelteon (ROZEREM) tablet 8 mg Given 03/14/2019 9:45 PM EST 8 mg 8 mg, Oral, X1, 1 dose, First dose on 03/14/19 at 2100, Administer within 30 minutes of going to bed. Should not be taken with or immediately after a high-fat meal., ramelteon (ROZEREM) tablet 8 mg Given 03/15/2019 8:39 PM EST 8 mg 8 mg, Oral, QHS PRN, Starting Tu03/15/19 at 2100, Until Thu03/16/19 at 1352, Sleep/Insomnia - 1st line, Administer within 30 minutes of going to bed. Should not be taken with or immediately after a high-fat meal., documented in this encounter Insurance Payer Benefit Plan / Subscriber ID Effective Dates Phone Address Type Group PriceAdvice [employer] PriceAdvice ACCESS xxxxxxxxxxxx 2018-Present [employer] PPO Guarantor Name Account Type Relation to Date of Phone Billing Patient Address Carlos Arora Personal/Family 1985 [address] [phone] [place], [place] (Work) [id number] documented as of this encounter Advance Directives [...]
--- OUTSIDE RECORDS SUMMARY | 2019-05-02 13:08 | XMS REPORT | Summary of Care ---
:1985 Author Organization [facility] Address [address] [address] Care Team Providers Name Role Phone Pierre Wayne Primary Care Provider Reason for Visit Reason Comments New Patient Abdominal Pain Encounter Details Date Type Department Care Team Description 03/23/2019 Office Visit Jeana Nye MD Ileal pouchitis (HCC) (Primary Dx); Gastroenterology/Hepa [address] [facility] [place] [address] [phone] [place] [address] [phone] Allergies Active Allergy Reactions Severity Noted Date Comments Erythromycin Other 01/08/2009 Azathioprine Sodium GI Reaction High 08/29/2014 Diarrhea,vomiting,shakes Infliximab Swelling 07/13/2014 Developed antibodies against documented as of this encounter (statuses as of 03/23/2019) Medications Medication Sig Dispensed Refills Start Date [...] TABLETS BY Oral Tab MOUTH EVERY DAY NITROGLYCERIN RE Place 0.125 % 0 Active per rectum THREE TIMES DAILY. Apply a pea sized amt 3-4 times daily inside rectum using finger cot predniSONE Take 2 Tabs by 30 Tab [...] MG/ACT Applicator per Rectal Foam rectum DAILY. Glucosamine-Chondr Take by mouth. 0 03/23/19 Discontinued oitin (OSTEO 20 (Other) BI-FLEX REGULAR STRENGTH PO) documented as of this encounter (statuses as of 03/23/2019) Active Problems Problem Noted Date Lower GI bleed 03/15/2019 Thrombocytosis 07/29/2017 Ileal pouchitis 01/08/2016 Rectal or anal pain 06/20/2015 Ulcerative colitis, chronic 10/12/2014 Mood disorder documented as of this encounter (statuses as of 03/23/2019) Resolved Problems Problem Noted Date Resolved Date Diarrhea following gastrointestinal surgery 07/09/2015 03/27/2018 Ileostomy status 06/13/2015 08/13/2015 History of ulcerative colitis 06/13/2015 03/27/2018 DVT of upper extremity (deep vein thrombosis), right 02/09/2015 08/13/2015 Abdominal fluid collection 02/08/2015 08/13/2015 DVT of upper extremity (deep vein thrombosis) 01/30/2015 08/13/2015 continuous churn buttermaker (current) use of anticoagulants 01/29/2015 06/28/2015 Overview: 06/28/15 Warfarin d/c'd by Blanco Managed by [facility], referred by Dr Ry La, Dx RUE DVT, target INR range 2.0-3.0, therapy initiated on 01/25/15, duration of therapy 6 months Anticoagulant Warfarin Dehydration 01/08/2015 07/14/2015 Rectal mass 01/08/2015 07/14/2015 Ulcerative colitis, acute, other complication 08/14/2014 08/13/2015 Pancolitis 08/14/2014 08/13/2015 Bloody diarrhea 08/14/2014 10/12/2014 Leukocytosis 08/14/2014 10/12/2014 Other ulcerative colitis 05/24/2014 12/29/2014 documented as of this encounter (statuses as of 03/23/2019) Immunizations Name Administration Dates Next Due Influenza [...] Sign Reading Time Taken Comments Blood Pressure 122/82 03/23/2019 2:11 PM EST Pulse 72 03/23/2019 2:11 PM EST Temperature - - Respiratory Rate - - Oxygen Saturation 99% 03/23/2019 2:11 PM EST Inhaled Oxygen Concentration - - Weight 113.4 kg (250 lb) 03/23/2019 2:11 PM EST Height 190.5 cm (6' 3") 03/23/2019 2:11 PM EST Body Mass Index 31.25 03/23/2019 2:11 PM EST documented in this encounter Patient Instructions Patient InstructionsKiJeana lin MD - 03/23/2019 2:15 PM EST1. Ok to schedule endoscopy and pouchoscopy here 2. Start tapering the prednisone: go down to 25 mg tomorrow for 5 days, then taper by 5 mg every 5 days. A new script for the prednisone has been sent to pharmacy. 3. We [facility] 4. bloodwork for TB and hepatitis B today 5. Let's try uceris foam (prior auth as well); print out a savings card online 6. See me back in 1 week Jeana Chavira MD documented in this encounter Progress Notes Jeana Chavira MD - 03/23/2019 2:15 PM EST PATIENT: Carlos Arora : 1985 DATE OF SERVICE: 03/23/2019 REFERRING PRACTITIONER: Dianna Cross PRIMARY CARE PROVIDER: Wayne Jay CHIEF COMPLAINT: Chief Complaint Patient presents with New Patient Abdominal Pain Subjective HISTORY OF PRESENT ILLNESS: Carlos Arora is a 34-y.o. male who presents to discuss recent hospitalization. Patient has a history of complicated ulcerative colitis, requiring proctocolectomy with J pouch. He previously failed azathioprine, remicade, Humira, and entyvio. Recently, he has been having more symptoms of worsening diarrhea. In January of 2019, he underwent EGD/pouchoscopy with Dr. Cross of [place], which showed multiple ulcerations in his small intestine and pouch. 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 Last week, his called the ambulance after he had large uncontrolled loss of blood per rectum, with associated dizziness. He was found at [place] [facility] to have Hgb of 6, and was transferred to [facility]. He underwent EGD/pouchoscopy, which showed multiple ulcerations in the pouch. He admits to having usedadvil for severe headaches recently. He was previously on methylprednisolone for the pouchitis, which was switched to prednisone at [facility]. He reports that he has not continued to see any further bleeding. He has multiple loose BMs at his baseline--6 to 8 daily. At its worst, he had 20 BMs daily. +mild headaches. No fevers/chills. He stillhas some dizziness. Current Outpatient Medications Medication Sig acetaminophen (TYLENOL) [...] TABLETS BY MOUTH EVERY DAY NITROGLYCERIN RE Place 0.125 % per rectum THREE TIMES DAILY. Apply a pea sized amt 3-4 times daily inside rectum using finger cot pantoprazole (PROTONIX) 40 MG Oral Tab EC [...] present illness/subjective. Objective PHYSICAL EXAMINATION: VITALS: BP 122/82 (BP Location: Left arm, Patient Position: Sitting) | Pulse 72 | Ht 6' 3" (1.905m) | Wt 250 lb (113.4 kg) | SpO2 99% | BMI 31.25 kg/m Body mass index is 31.25 kg/m. GENERAL: alert, oriented, no acute distress. [...] a&o x 3 RECTAL: exam deferred. IMPRESSION: ICD-9-CM ICD-10-CM 1. Ileal pouchitis (HCC) 569.71 K91.850 T-SPOT HEPATITIS B SURFACE ANTIBODY 2. Need for influenza vaccination V04.81 Z23 VA FLU VACCINE PRES FREE 6MOS+ Patient has Crohn's, in all likelihood, rather than ulcerative colitis Plan PLAN: 1. Plan for Stelara: will need updated Tspot, HBV. Influenza vaccine today 2. Taper prednisone by 5 mg every 5 days 3. Start uceris foam 4. Rifaximin 550 mg bid 5. Repeat EGD/pouchoscopy in 4 weeks to assess healing and to repeat biopsies for LSIL 6. May need MR enterography, but will wait until repeat procedures performed 7. Consider referral to Dr. Josemanuel [facility]ilar of [facility] for second opinion. Follow up: Schedule follow-up here in 1 week(s). Author: Jeana Chavira MD 03/23/2019 15:30 documented in this encounter Plan of Treatment Date Type Specialty Care Team Description 03/29/2019 Office Visit General Surgery Alexandru Perez MD [address] [address] [phone] 03/31/2019 Office Visit Gastroenterology Jeana Chavira MD [address] [place] [address] [phone] 04/07/2019 Office Visit Family Practice Wayne Jay MD [address] [place], [place] [id number] 04/26/2019 GI Procedure Gastroenterology Jeana Chavira MD [address] [place] [address] [phone] Name Type Priority Associated Diagnoses Date/Time T-SPOT Lab Routine Ileal pouchitis (HCC) 03/23/2019 3:01 PM EST Name Type Priority Associated Diagnoses Order Schedule HEPATITIS B SURFACE ANTIBODY Lab Routine Ileal pouchitis (HCC) Ordered: Health Maintenance Due Date Last Done Comments [...] Visit Diagnoses Diagnosis Ileal pouchitis (HCC) Pouchitis Need for influenza vaccination Need for prophylactic vaccination and inoculation against influenza documented in this encounter Insurance Payer Benefit Plan / Subscriber ID Effective Dates Phone Address Type Group [employer] ACCESS xxxxxxxxxxxx 2018-Present [facility] CARE O MEDICAID [facility] xxxxxxxx 2019-Present Medicaid [place] MEDICAID Guarantor Name Account Type Relation to Date of Phone Billing Patient Address Carlos Arora Personal/Family 1985 [address] [phone] [place], [place] (Work) [address] documented as of this encounter Advance Directives [...]
--- OUTSIDE RECORDS SUMMARY | 2019-05-02 13:08 | XMS REPORT | Summary of Care ---
:1985 Author Organization [facility] Address [address] [address] Care Team Providers Name Role Phone Wayne Jay Primary Care Provider Reason for Visit Reason Comments Transitional Care Management pt presents for TCM from admission to [facility] Encounter Details Date Type Department Care Team Description 03/18/[address] [facility] Wayne Jay MD Acute GI bleeding (Primary Dx); Practice [address] [facility] Inflammatory bowel diseases (IBD); [address] [place] [address] Iron deficiency anemia due to [place] [address] [phone] Allergies Active Allergy Reactions Severity Noted Date Comments Erythromycin Other 01/08/2009 Azathioprine Sodium GI Reaction High 08/29/2014 Diarrhea,vomiting,shakes Infliximab Swelling 07/13/2014 Developed antibodies against documented as of this encounter (statuses as of 03/22/2019) Medications Medication Sig Dispensed Refills Start Date End Date Status B-12, Methylcobalamin, Place 1,000 mcg 0 Active 1000 MCG Sublingual SL under tongue Tab EVERY OTHER DAY. Probiotic Product Take 1 Cap by 0 Active (PROBIOTIC DAILY PO) mouth DAILY. budesonide (ENTOCORT Take 9 mg by 0 Active EC) 3 MG Oral CAPSULE mouth DAILY. ENTERIC COATED PARTICLESIndications: Ileal pouchitis (HCC) dicyclomine (BENTYL) 20 Take 20 mg by 0 Active MG Oral TabIndications: mouth THREE TIMES Ileal pouchitis (HCC) DAILY. pantoprazole (PROTONIX) TAKE ONE TABLET 30 Tab 6 05/21/2016 Active 40 MG Oral Tab EC BY MOUTH EVERY DAY acetaminophen (TYLENOL) Take 500 mg by 0 Active 500 MG Oral Tab mouth EVERY SIX HOURS NEEDED for Pain. Glucosamine-Chondroitin Take by mouth. 0 Active (OSTEO BI-FLEX REGULAR STRENGTH PO) escitalopram (LEXAPRO) TAKE TWO TABLETS 60 Tab 5 02/24/2019 Active 10 MG Oral Tab BY MOUTH EVERY DAY NITROGLYCERIN RE Place 0.125 % per 0 Active rectum THREE TIMES DAILY. Apply a pea sized amt 3-4 times daily inside rectum using finger cot predniSONE (DELTASONE) Take 2 Tabs by 30 Tab 0 03/16/2019 Active 20 MG Oral Tab mouth EVERY TWENTY-FOUR HOURS. documented as of this encounter (statuses as of 03/22/2019) Active Problems Problem Noted Date Lower GI bleed 03/15/2019 Thrombocytosis 07/29/2017 Ileal pouchitis 01/08/2016 Rectal or anal pain 06/20/2015 Ulcerative colitis, chronic 10/12/2014 Mood disorder documented as of this encounter (statuses as of 03/22/2019) Resolved Problems Problem Noted Date Resolved Date Diarrhea following gastrointestinal surgery 07/09/2015 03/27/2018 Ileostomy status 06/13/2015 08/13/2015 History of ulcerative colitis 06/13/2015 03/27/2018 DVT of upper extremity (deep vein thrombosis), right 02/09/2015 08/13/2015 Abdominal fluid collection 02/08/2015 08/13/2015 DVT of upper extremity (deep vein thrombosis) 01/30/2015 08/13/2015 rodent exterminator (current) use of anticoagulants 01/29/2015 06/28/2015 Overview: 06/28/15 Warfarin d/c'd by Blanco Managed by [facility], referred by Dr Ry La, Dx RUE DVT, target INR range 2.0-3.0, therapy initiated on 01/25/15, duration of therapy 6 months Anticoagulant Warfarin Dehydration 01/08/2015 07/14/2015 Rectal mass 01/08/2015 07/14/2015 Ulcerative colitis, acute, other complication 08/14/2014 08/13/2015 Pancolitis 08/14/2014 08/13/2015 Bloody diarrhea 08/14/2014 10/12/2014 Leukocytosis 08/14/2014 10/12/2014 Other ulcerative colitis 05/24/2014 12/29/2014 documented as of this encounter (statuses as of 03/22/2019) Immunizations Name Administration Dates Next Due Influenza [...] Sign Reading Time Taken Comments Blood Pressure 122/72 03/18/2019 2:44 PM EST Pulse 74 03/18/2019 2:44 PM EST Temperature 36.4 03/18/2019 2:44 PM C (97.5 EST F) Respiratory Rate - - Oxygen Saturation 98% 03/18/2019 2:44 PM EST Inhaled Oxygen Concentration - - Weight 116.5 kg (256 lb 12.8 oz) 03/18/2019 2:44 PM EST Height 190.5 cm (6' 3") 03/18/2019 2:44 PM EST Body Mass Index 32.1 03/18/2019 2:44 PM EST documented in this encounter Patient Instructions Patient InstructionsWayne Jay MD - 03/18/2019 2:[address] Chavira 2 15 documented in this encounter Progress Notes Wayne Jay MD - 03/18/2019 2:40 PM EST PATIENT: Carlos Arora : 1985 DATE OF SERVICE: 03/18/2019 CHIEF COMPLAINT: Chief Complaint Patient presents with Transitional Care Management pt presents for TCM from admission to [facility] Subjective HISTORY OF PRESENT ILLNESS: Carlos Arora is a 34-y.o. male. In for hospital follow up. TCM call was made. Admitted 03/14 and discharged . Diagnosis was GI bleed. patieint with a Hx of UC and now thought to have Crohn's Dz. He was resistant to multipletreatments and had a colectomy with a ileal pouch. He has had several cases of pouchitis and was still on entocort till a month or so ago when he saw Dr Cross in [place] who did upper and lower scopes revealing inflammatory changes and put him on methylprednisolone 32 mg a day He was feeling well till the day before admission and had a MOREIRA. He took some motrin Woke up the next day to go to work and felt weird in his head and fell/passed out . Copious amountof stool black , varun and red was on the floor . He was brought to [place] ER . BP was low needed 2 IVlines to get his BP up. Hgb to 10 BUN 34 protein and calcium low [place] He was hypotensive, put in the ICU and had 2 units of PRBC. Seen by Dr Camejo who repeated the endoscopies with no active bleeding. I spoke to dr Camejo who said the pouch looked good except some ulcers. Less inflammation than the report from Dr Cross a month before . Also had superficial gastric ulcers. Dr Camejo though his motrin use was the cause but was under the impression patient was using motrin often but he only took it the night before Patient still weak but no more bleeding . 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 dicyclomine (BENTYL) 20 MG Oral Tab Take 20 mg by mouth THREE TIMES DAILY. escitalopram (LEXAPRO) 10 MG Oral Tab TAKE TWO TABLETS BY MOUTH EVERY DAY Glucosamine-Chondroitin (OSTEO BI-FLEX REGULAR STRENGTH PO) Take by mouth. NITROGLYCERIN RE Place 0.125 % per rectum THREE TIMES DAILY. Apply a pea sized amt 3-4 times daily inside rectum using finger cot pantoprazole (PROTONIX) 40 MG Oral Tab EC TAKE ONE TABLET BY MOUTH EVERY DAY predniSONE (DELTASONE) 20 MG Oral Tab Take 2 Tabs by mouth EVERY TWENTY- FOUR HOURS. Probiotic Product (PROBIOTIC DAILY PO) Take 1 Cap by mouth DAILY. No current facility-administered medications for this [...] file Gets together: Not on file Attends scientologist service: Not on file Active member of [...] Narrative Not on file REVIEW OF SYSTEMS: ROS Objective PHYSICAL EXAM: VITALS: BP 122/72 (BP Location: Left arm, Patient Position: Sitting) | Pulse 74 | Temp 97.5 F(36.4 C) | Ht 6' 3" (1.905 m) | Wt 256 lb 12.8 oz ( 116.5 kg) | SpO2 98% | BMI 32.10 kg/m Body mass index is 32.1 kg/m. Physical Exam Vitals signs reviewed. Constitutional: Comments: Pale HENT: Mouth/Throat: Pharynx: Oropharynx is clear. Eyes: General: No scleral icterus. Cardiovascular: Rate and Rhythm: Normal rate and regular rhythm. Pulmonary: Effort: Pulmonary effort is normal. No respiratory distress. Abdominal: General: There is no distension. Palpations: There is no mass. Tenderness: There is no guarding. Musculoskeletal: Right lower leg: No edema. Left lower leg: No edema. Psychiatric: Behavior: Behavior normal. ASSESSMENT / IMPRESSION: ICD-9-CM ICD-10-CM 1. Acute GI bleeding My theory was that although the prednisone improved his pouchitis it irritatedhis stomach causing the melena that was seen followed by the other blood. Dr Camejo felt the motrin was the culprit and caused the ulcers in the pouch that bled so profusely and the little bit of black stool was old blood . Im not sure he knew he only took 1 dose. Maybe that is all that would take if on prednisone. It is a more plausable explanation considering the copious amount of red blood that seemed to follow . None the less he is ok if we wean the prednisone so will go to 30mg till seeDr Cait. The plan was to see Dr Chavira as a second opinion requested byt Dr Cross., Dr Chavira has contacts at [facility] which is where Cam needs to go due to his severe case of IBD. 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 Dr camejo would like Dr Cross to see him again to compare what the pouch looked like post prednisone as Dr Camejo reported it looked good except for the ulcers 578.9 K92.2 2. Inflammatory bowel diseases (IBD) 558.9 K52.9 CBC NO DIFFERENTIAL 3. Iron deficiency anemia due to chronic blood loss 280.0 D50.0 Plan TCM Statement. Review of the hospitalization: I am seeing for transition of care following hospitalization. The date of discharge was: 03/16/19 The discharge diagnosis was GI bleed. I reviewed the discharge summary, discharge instructions, and pertinent additional documentation obtained during hospitalization. I reconciled the medications. I also reviewed the Transition of Care documentation done by staff. The tests that were not available at the time of discharge were reviewed. Additional tests which are not yet available include: none Coordination of care. (delete one and this phrase) - I am satisfied that appropriate referrals are in place to deal with the problems identified during hospitalization, and that the patient has adequate community resources and support in place. - Additional testing related to hospitilization was requested today: yes See orders. I confirmed the patient's understanding of the diagnosis and plan of care. Specific education that was provided today: Patient Instructions follow up with Dr Chavira 2 15 The current and discharge medications were reconciled by me, today The source document was hospital discharge summary Author: Wayne Jay MD 03/22/2019 10:02 documented in this encounter Plan of Treatment Date Type Specialty Care Team Description 03/23/2019 Office Visit Gastroenterology Jeana Chavira MD [address] [place] [address] [phone] 03/29/2019 Office Visit General Surgery Alexandru Perez MD [address] [address] 04/06/2019 Office Visit Gastroenterology Jt Camejo DO [address] [id number] 04/07/2019 Office Visit Family Practice Wayne Jay MD [address] [place] [address] [phone] 04/25/2019 GI Procedure Gastroenterology Jt Camejo DO [address] [address] Health Maintenance Due Date Last Done Comments [...] Keep a regular sleep schedule Lifestyle No Wyane Jay MD Note: This is an individualized [...] encounter Procedures Procedure Name Priority Date/Time Associated Diagnosis Comments CBC NO DIFFERENTIAL Routine 03/18/2019 4:03 Inflammatory bowel Results for this PM EST diseases (IBD) procedure are in the results section. documented in this encounter Results CBC NO DIFFERENTIAL (03/18/2019 4:03 PM EST) WBC Count 15.08 (H)Comment: 4.23 - 9.07 MEDICAL Methodology was K/uL [facility] changed 02/25/2018. Please note updated reference range and units. RBC Count 3.10 (L) 4.30 - 5.89 [facility] M/UL [facility] Hemoglobin 9.2 (L) 13.7 - 17.5 [facility] g/dL [facility] Hematocrit 28.8 (L) 40.1 - 51.0 % [facility] MCV 92.9 (H) 79.0 - 92.2 [facility] FL [facility] MCH 29.7 25.7 - 32.2 [facility] PG [facility] MCHC 31.9 (L) 32.3 - 36.5 [facility] g/dL [facility] Platelet Count 381 (H) 163 - 337 [facility] K/uL [facility] MPV 9.9 9.4 - 12.4 [place] [facility] RDW 16.2 (H) 11.6 - 14.4 % [facility] Specimen Blood - Blood specimen (specimen) Performing Organization Address City/State/[place] [facility] Phone Number [facility] [address] [place] [address] [phone] documented in this encounter Visit Diagnoses Diagnosis Inflammatory bowel diseases (IBD) Other and unspecified noninfectious gastroenteritis and colitis Acute GI bleeding Hemorrhage of gastrointestinal tract, unspecified Iron deficiency anemia due to chronic blood loss Iron deficiency anemia secondary to blood loss (chronic) documented in this encounter Insurance Payer Benefit Plan / Subscriber ID Effective Dates Phone Address Type Group [employer] ACCESS xxxxxxxxxxxx 2018-Present [employer] CARE PPO [place] xxxxxxxx 2019-Present Medicaid [place] MEDICAID Guarantor Name Account Type Relation to Date of Phone Billing Patient Address Carlos rAora Personal/Family 1985 [address] [phone] [place], [place] (Work) [address] documented as of this encounter Advance Directives [...]
[2019-05-02 13:35] VITALS: BP 137/93
--- NOTE | 2019-05-02 13:51 | UC ---
Elbow Pain - HPI Summary HPI Summary: Pt presents with c/o gradual onset right elbow pain, mild swelling and redness. Pt denies recent injury and states pain and swelling of the last week. - History of Current Complaint Chief Complaint: UCUpperExtremity Stated Complaint: SKIN COMPLAINT Time Seen by Provider: 05/02/19 13:42 Hx Obtained From: Patient Onset/Duration: Days Severity Initially: Mild Severity Currently: Moderate Pain Intensity: 8 Location Of Pain: Is Discrete @ - right elbow Character: Dull, Aching Aggravating Factor(s): Movement Alleviating Factor(s): Rest Associated Signs And Symptoms: Positive: Swelling, Redness - Allergies/Home Medications Allergies/Adverse Reactions: Allergies Allergy/AdvReac Type Severity Reaction Status Date / Time azathioprine [From Imuran] Allergy Vomiting Verified 05/02/19 13:27 erythromycin base Allergy Hives Verified 05/02/19 13:27 infliximab [From Remicade] Allergy Difficulty Verified 05/02/19 13:27 Breathing Home Medications: Home Medications Dicyclomine CAP* [Bentyl CAP*] 10 mg PO TID PRN 08/28/18 [History Confirmed 11/12] Escitalopram * [Lexapro *] 20 mg PO DAILY 08/28/18 [History Confirmed 05/02/19] Sulfamethox/Trimethoprim DS* [Bactrim DS 800/160 TAB*] 1 tab PO Q12H #14 tab 11/12 [Rx] Ustekinumab [Stelara] 1 syringe SEE INSTRUCTIONS 05/02/19 [History Confirmed 11/12] predniSONE [Prednisone 20 MG TAB] 1 tab DAILY 05/02/19 [History Confirmed ] PMH/Surg Hx/FS Hx/Imm Hx Previously Healthy: Yes - Surgical History Surgical History: Yes Surgery Procedure, Year, and Place: APPENDECTOMY. J pouch. rectal tumor- non- cancerous. ileostomy and reversal - Family History Known Family History: Positive: Cardiac Disease Negative: Diabetes - Social History Occupation: Employed Full-time Lives: With Family Alcohol Use: None Substance Use Type: None Smoking Status (MU): Never Smoked Tobacco Have You Smoked in the Last Year: No - Immunization History Most Recent Tetanus Shot: not sure, think 2014 Vaccination Up to Date: Yes Review of Systems All Other Systems Reviewed And Are Negative: Yes Constitutional: Positive: Negative Skin: Positive: Other - mild erythema and swelling right elbow Eyes: Positive: Negative ENT: Positive: Negative Respiratory: Positive: Negative Cardiovascular: Positive: Negative Gastrointestinal: Positive: Negative Genitourinary: Positive: Negative Motor: Positive: Negative Neurovascular: Positive: Negative Musculoskeletal: Positive: Edema - right elbow Neurological/Mental Status: Positive: Negative Psychological: Positive: Negative Is Patient Immunocompromised?: No Physical Exam Triage Information Reviewed: Yes Appearance: Well-Appearing Vital Signs: Initial Vital Signs Temp 98.2 F 05/02/19 13:28 Pulse 63 05/02/19 13:28 Resp 16 05/02/19 13:28 BP 137/93 05/02/19 13:28 Pulse Ox 99 05/02/19 13:28 Vital Signs Reviewed: Yes Eye Exam: Normal ENT Exam: Normal Dental Exam: Normal Neck exam: Normal Respiratory: Positive: No respiratory distress Musculoskeletal: Positive: Edema @ - right elbow mild swelling, erythema and pt c/o pain Neurological Exam: Normal Psychological Exam: Normal Skin Exam: Normal Elbow Pain Course/Dx - Differential Dx/Diagnosis Differential Diagnosis/HQI/PQRI: Bursitis, Cellulitis Provider Diagnosis: Olecranon bursitis, right elbow Discharge ED - Sign-Out/Discharge Documenting (check all that apply): Patient Departure All imaging exams completed and their final reports reviewed: No Studies - Discharge Plan Condition: Stable Disposition: HOME Prescriptions: Sulfamethox/Trimethoprim DS* [Bactrim DS 800/160 TAB*] 1 tab PO Q12H #14 tab Patient Education Materials: Elbow Bursitis (ED), Ice Pack Application (ED) Referrals: Wayne Jay MD [Primary Care Provider] - If Needed Colleen Mckenzie MD [Medical Doctor] - If Needed - Billing Disposition and Condition Condition: STABLE Disposition: Home - Attestation Statements Provider Attestation: This patient was not seen by me. I was available for consult. Chart reviewed. MIKEY
== END 2019-05-02 14:00 | disposition home or self-care (01) ==
LOC: UCCORT 12:57
DX: M70.21 Olecranon bursitis, right elbow (principal); Z88.1 Allergy status to other antibiotic agents; Z88.8 Allergy status to other drugs, medicaments and biological substances
CPT/HCPCS: 99212; G0463